=== PATIENT | male | born 1950 | race Caucasian/White ===

== ENCOUNTER → 2017-04-07 | Outpatient (CLI) | payer MEDICARE, MEDICAID ==
[~2017-04-07] MED LIST: METH4TAB PO; MULT1CAP27 PO; NIA500ERT PO; OMEP-10 PO; OMEP20TA2 PO; SULF1TAB38 PO; [UNRECOGNIZED DRUG - CODE] PO; omeprazole; simvastatin
[2017-04-07 08:24] LABS: ALBUMIN 4.3 G/DL (3.2-4.5); BILIRUBIN,DIRECT 0.2 MG/DL (0.0-0.3); BILIRUBIN,INDIRECT 0.2 MG/DL; BILIRUBIN,TOTAL 0.4 MG/DL (0.1-1.0)
--- NOTE | 2017-04-07 13:25 | ECHOCARDIOGRAPHY REPORT ---
DATE OF SERVICE: 04/07/2017 A 2D ECHOCARDIOGRAM REFERRING PHYSICIAN: No local physician. INDICATION: Chest pain. MEASUREMENT: LVID end diastolic 4.0. IVS thickness 1.0. LVPW thickness 0.9 cm. Left atrial diameter 2.4. Ejection fraction 60%. FINDINGS: 1. Technical quality is good. 2. The left ventricle is normal in size with normal contractility, systolic function appeared to be normal, estimated ejection fraction 60%. 3. The left atrium is normal in size. No clot or thrombus were seen within the left atrium. 4. The right atrium and right ventricle are normal in size. No clot or thrombus were seen within the right side. 5. Mitral valve is normal in morphology with mild mitral regurgitation noted by color Doppler flow. No mitral valve prolapse. No mitral valve stenosis. 6. Aortic valve is trileaflet with normal opening and closing pattern. No significant aortic stenosis or regurgitation was seen. 7. Tricuspid valve is normal in morphology with mild tricuspid regurgitation noted by color Doppler flow. Doppler across the tricuspid valve estimated pulmonary artery pressure of 18 plus right atrial pressure. 8. Pulmonic valve is functioning normally. 9. No pericardial effusion. CONCLUSION: 1. Normal left ventricular size and systolic function, estimated ejection fraction 60%. 2. Mild mitral and tricuspid regurgitation. 3. Estimated pulmonary artery pressure of 25 mmHg. Job ID: [id number] DocumentID: [id number] Dictated Date: 04/07/2017 12:00:36 Money Market Clerk Date: 04/07/2017 12:27:40 Dictated By: DINA CHOUDHARY MD
== END ==
LOC: CARD 07:39
PROVIDERS: ATTEND Physician Assistant
DX: E78.2 Mixed hyperlipidemia (principal); I25.10 Atherosclerotic heart disease of native coronary artery without angina pectoris; R07.89 Other chest pain; I50.20 Unspecified systolic (congestive) heart failure
CPT/HCPCS: 36415; 80061; 80076; 93306

== ENCOUNTER → 2017-04-09 | Outpatient (CLI) | payer MEDICARE, MEDICAID ==
[~2017-04-09] MED LIST changes: +CATHETER FLUSH 10 ML SYR IV PRN; +REGADENOSON 0.4 MG/5 ML SYR (LEXISCAN) IV ONE
[2017-04-09 09:28] VITALS: BP 146/74
--- NOTE | 2017-04-11 07:48 | STRESS TEST ---
DATE OF SERVICE: 04/09/2017 LEXISCAN MYOVIEW STRESS TEST REPORT REFERRING PHYSICIAN: There is no local physician. Baseline heart rate is 58. Baseline blood pressure is 146/74. Baseline EKG is sinus rhythm with no ischemic changes. SUMMARY: The patient was injected with 10.55 mCi of technetium-99 Myoview and the resting images were obtained. Then, the patient received 0.4 mg of Lexiscan followed by 30.7 mCi of technetium-99 Myoview. Throughout the test, there were nondiagnostic EKG changes. The resting and stress images were reviewed and compared in the short axis, horizontal long axis, and vertical long axis views. Review of the images showed good radiotracer uptake with no significant ischemia or infarction on SPECT images. SSS is 1, SDS 1, TID value 1.02. On the gated images, the left ventricle appeared to be in normal size with normal contractility, calculated ejection fraction 52%. CONCLUSIONS: 1. The patient tolerated Lexiscan well. 2. No ischemia or infarction on SPECT images. 3. Normal left ventricular size with normal contractility, calculated ejection fraction 52%. Job ID: [id number] DocumentID: [id number] Dictated Date: 04/09/2017 15:27:25 Grades 9 Through 12 Teacher Date: 04/10/2017 05:51:04 Dictated By: DINA CHOUDHARY MD
== END ==
LOC: CARD 07:37
PROVIDERS: ATTEND Physician Assistant
DX: I25.10 Atherosclerotic heart disease of native coronary artery without angina pectoris (principal); R07.89 Other chest pain; E78.2 Mixed hyperlipidemia; I50.20 Unspecified systolic (congestive) heart failure
CPT/HCPCS: 78452; 93017

== ENCOUNTER 2017-07-16 14:54 | Inpatient (IN) | payer MEDICARE, MEDICAID ==
[~2017-07-16] VITALS: Ht 167.6 cm; Wt 62.1 kg
[~2017-07-16 14:54] MED LIST changes: -CATHETER FLUSH 10 ML SYR IV PRN; -REGADENOSON 0.4 MG/5 ML SYR (LEXISCAN) IV ONE
--- OUTSIDE RECORDS SUMMARY | 2017-07-16 15:02 | XMS REPORT | Continuity of Care Document ---
Author Author [facility] Organization [facility] Address Unknown Phone Unavailable Allergies Active Description Code Type Severity Reaction Onset Reported/Identified Relationship to Patient Clinical Status Yes iodine dye iodine dye Mild N/A 03/16/2009 Yes iodine [id number] Drug Allergy Mild FACE SWOLLEN, E 03/18/2011 Medications Problems Date Dx Coded Attending Type Code Diagnosis Diagnosed By 10/23/1099 VILMA POSADAS, CHINO Perry Ot Z48.812 ENCNTR FOR SURGICAL AFTCR FOLLOWING SURG 10/23/1099 VILMA POSADAS, CHINO Perry Ot Z95.5 PRESENCE OF CORONARY ANGIOPLASTY IMPLANT 03/18/2011 Ot 682.3 CELLULITIS OF ARM 06/08/2013 SONA POSADAS, DUONG R Ot 789.07 ABDOMINAL PAIN, GENERALIZED 07/21/2014 STAN SPEARS OSS ARCHITECT Ot 881.00 OPEN WOUND OF FOREARM 07/21/2014 STAN SPEARS OSS ARCHITECT Ot E000.8 OTHER EXTERNAL CAUSE STATUS 07/21/2014 STAN SPEARS OSS ARCHITECT Ot E849.0 ACCIDENT IN HOME 07/21/2014 STAN SPEARS OSS ARCHITECT Ot E917.4 STAT OB W/O SUB FALL NEC 07/21/2014 STAN SPEARS OSS ARCHITECT Ot V06.1 [id number]-[id number], COMBINED [ 07/28/2014 SERA POSADAS, ALEXX Skinner Ot V58.32 ENCOUNTER FOR REMOVAL OF SUTURES 03/15/2016 RODRICK SRIVASTAVA DO Ot E78.5 HYPERLIPIDEMIA, UNSPECIFIED 03/15/2016 RODRICK SRIVASTAVA DO Ot I10 ESSENTIAL (PRIMARY) HYPERTENSION 03/15/2016 RODRICK SRIVASTAVA DO Ot I25.10 ATHSCL HEART DISEASE OF [place] CORONARY 03/15/2016 RODRICK SRIVASTAVA DO Ot I25.5 ISCHEMIC CARDIOMYOPATHY 03/15/2016 RODRICK SRIVASTAVA DO Ot I50.22 CHRONIC SYSTOLIC (CONGESTIVE) HEART FAIL 03/15/2016 RODRICK SRIVASTAVA DO Ot I70.1 ATHEROSCLEROSIS OF RENAL ARTERY 03/15/2016 SRIVASTAVAHIPOLITO VILLANUEVA RODRICK Ot I70.203 UNSP ATHSCL [place] ARTERIES OF [facility] 03/15/2016 SRIVASTAVAHIPOLITO VILLANUEVA RODRICK Ot 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 03/15/2016 SRIVASTAVAHIPOLITO VILLANUEVA RODRICK Ot Z72.0 TOBACCO USE 03/15/2016 SRIVASTAVAHIPOLITO VILLANUEVA RODRICK Ot 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 03/15/2016 CAROLA VILLANUEVA RODRICK Ot Z82.49 FAMILY HX OF ISCHEM HEART DIS AND OTH DI 03/25/2016 CAROLA VILLANUEVA RODRICK Ot E78.5 HYPERLIPIDEMIA, UNSPECIFIED 03/25/2016 SRIVASTAVA DO RODRICK Ot I10 ESSENTIAL (PRIMARY) HYPERTENSION 03/25/2016 CAROLA VILLANUEVA RODRICK Ot I25.10 ATHSCL HEART DISEASE OF [place] CORONARY 03/25/2016 CAROLA VILLANUEVA RODRICK Ot I25.5 ISCHEMIC CARDIOMYOPATHY 03/25/2016 CAROLA VILLANUEVA RODRICK Ot I50.22 CHRONIC SYSTOLIC (CONGESTIVE) HEART FAIL 03/25/2016 CAROLA VILLANUEVA RODRICK Ot I70.1 ATHEROSCLEROSIS OF RENAL ARTERY 03/25/2016 CAROLA VILLANUEVA RODRICK Ot I70.203 UNS ATHSCL [place] ARTERIES OF [facility] 03/25/2016 SRIVASTAVAHIPOLITO VILLANUEVA RODRICK Ot 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 03/25/2016 CAROLA VILLANUEVA RODRICK Ot Z72.0 TOBACCO USE 03/25/2016 CAROLA VILLANUEVA RODRICK Ot Z79.899 OTHER [facility] (CURRENT) DRUG THERAPY 03/25/2016 CAROLA VILLANUEVA RODRICK Ot Z82.49 FAMILY HX OF ISCHEM HEART DIS AND OTH DI 06/24/2016 FIDELINA DOMÍNGUEZ MD Ot R42 DIZZINESS AND GIDDINESS 06/24/2016 FIDELINA DOMÍNGUEZ MD Ot Z53.21 PROC/TRTMT NOT CRD OUT D/T PT LV BEF SEE 06/24/2016 CHINO ESPARZA MD Ot Z48.812 ENCNTR FOR SURGICAL AFTCR FOLLOWING SURG 06/24/2016 CHINO ESPARZA MD Ot Z95.5 PRESENCE OF CORONARY ANGIOPLASTY IMPLANT 06/25/2016 FIDELINA DOMÍNGUEZ MD Ot R42 DIZZINESS AND GIDDINESS 06/25/2016 FIDELINA DOMÍNGUEZ MD Ot Z53.21 PROC/TRTMT NOT CRD OUT D/T PT LV BEF SEE 07/09/2016 CHINO ESPARZA MD, Ot Z48.812 ENCNTR FOR SURGICAL AFTCR FOLLOWING SURG 07/09/2016 CHINO ESPARZA MD, Ot Z95.5 PRESENCE OF CORONARY ANGIOPLASTY IMPLANT 08/11/2016 CHINO ESPARZA MD, Ot Z48.812 ENCNTR FOR SURGICAL AFTCR FOLLOWING SURG 08/11/2016 CHINO ESPARZA MD Ot Z95.5 PRESENCE OF CORONARY ANGIOPLASTY IMPLANT 08/12/2016 CHINO ESPARZA MD, Ot Z48.812 ENCNTR FOR SURGICAL AFTCR FOLLOWING SURG 08/12/2016 CHINO ESPARZA MD, Ot Z95.5 PRESENCE OF CORONARY ANGIOPLASTY IMPLANT 08/13/2016 CHINO ESPARZA MD, Ot Z48.812 ENCNTR FOR SURGICAL AFTCR FOLLOWING SURG 08/13/2016 CHINO ESPARZA MD, Ot Z95.5 PRESENCE OF CORONARY ANGIOPLASTY IMPLANT 08/14/2016 CHINO ESPARZA MD, Ot Z48.812 ENCNTR FOR SURGICAL AFTCR FOLLOWING SURG 08/14/2016 CHINO ESPARZA MD, Ot Z95.5 PRESENCE OF CORONARY ANGIOPLASTY IMPLANT 03/24/2017 BRIAN KAPLAN Ot I25.10 ATHSCL HEART DISEASE OF [place] CORONARY 04/08/2017 BRIAN KAPLAN Ot I25.10 ATHSCL HEART DISEASE OF [place] CORONARY 04/09/2017 BRIAN KAPLAN Ot E78.2 MIXED HYPERLIPIDEMIA 04/09/2017 BRIAN KAPLAN Ot I25.10 ATHSCL HEART DISEASE OF [place] CORONARY 04/09/2017 BRIAN KAPLAN Ot I50.20 UNSPECIFIED SYSTOLIC ( [place]) HEART 04/09/2017 BRIAN KAPLAN Ot R07.89 OTHER CHEST PAIN 05/05/2017 BRIAN KAPLAN Ot E78.2 MIXED HYPERLIPIDEMIA 05/05/2017 BRIAN KAPLAN Ot I25.10 ATHSCL HEART DISEASE OF [place] CORONARY 05/05/2017 KATHIA PA, BRIAN K Ot I50.20 UNSPECIFIED SYSTOLIC ( CONGE[place]IVE) HEART 05/05/2017 KATHIA LEO, BRIAN K Ot R07.89 OTHER CHEST PAIN 05/05/2017 KATHIA PA, BRIAN K Ot E78.2 MIXED HYPERLIPIDEMIA 05/05/2017 KATHIA LEO, BRIAN K Ot I25.10 ATHSCL HEART DISEASE OF [place] CORONARY 05/05/2017 KATHIA PA, BRIAN K Ot I50.20 UNSPECIFIED SYSTOLIC ( CONGESTIVE) HEART 05/05/2017 KATHIA LEO, BRIAN K Ot R07.89 OTHER CHEST PAIN 05/05/2017 KATHIA LEO, BRIAN K Ot E78.2 MIXED HYPERLIPIDEMIA 05/05/2017 KATHIA LEO, BRIAN K Ot I25.10 ATHSCL HEART DISEASE OF [place] CORONARY 05/05/2017 KATHIA LEO, BRIAN K Ot I50.20 UNSPECIFIED SYSTOLIC ( CONGESTIVE) HEART 05/05/2017 KATHIA LEO, BRIAN K Ot R07.89 OTHER CHEST PAIN 05/05/2017 KATHIA LEO, BRIAN K Ot E78.2 MIXED HYPERLIPIDEMIA 05/05/2017 KATHIA LEO, BRIAN K Ot I25.10 ATHSCL HEART DISEASE OF [place] CORONARY 05/05/2017 KATHIA LEO, BRIAN K Ot I50.20 UNSPECIFIED SYSTOLIC ( CONGESTIVE) HEART 05/05/2017 KATHIA LEO, BRIAN K Ot R07.89 OTHER CHEST PAIN 05/05/2017 KATHIA LEO, BRIAN K Ot E78.2 MIXED HYPERLIPIDEMIA 05/05/2017 KATHIA LEO, BRIAN K Ot I25.10 ATHSCL HEART DISEASE OF [place] CORONARY 05/05/2017 KATHIA LEO, BRIAN K Ot I50.20 UNSPECIFIED SYSTOLIC ( CONGESTIVE) HEART 05/05/2017 KATHIA LEO, BRIAN K Ot R07.89 OTHER CHEST PAIN 05/23/2017 KATHIA LEO, BRIAN K Ot E78.2 MIXED HYPERLIPIDEMIA 05/23/2017 KATHIA LEO, BRIAN K Ot I25.10 ATHSCL HEART DISEASE OF [place] CORONARY 05/23/2017 BRIAN KAPLAN Ot I50.20 UNSPECIFIED SYSTOLIC ( CONGESTIVE) HEART 05/23/2017 BRIAN KAPLAN Ot R07.89 OTHER CHEST PAIN Procedures Results Encounters ACCT No. Visit Date/Time Discharge Status Pt. Type Provider Facility Loc./Unit Complaint [id number] 04/09/2017 07:37:00 2016 23:59:59 CLS Outpatient BRIAN KAPLAN [facility] CARD CAD,CHEST PAIN [id number] 04/07/2017 08:00:00 2016 23:59:59 CLS Outpatient BRIAN KAPLAN [facility] CARD CAD, CHEST PAIN [id number] 08/14/2016 10:30:00 2015 11:00:00 DIS Outpatient CHINO ESPARZA MD [facility] CR STENT [id number] 08/09/2016 10:15:00 2015 00:01:00 DIS Outpatient CHINO ESPARZA MD [facility] CR STENT [id number] 06/24/2016 10:16:00 2015 11:16:00 DIS Emergency FIDELINA DOMÍNGUEZ MD [facility] ER DIZZY/STOMACH PAIN [id number] 03/14/2016 12:50:00 2015 15:15:00 DIS Outpatient RODRICK SRIVASTAVA DO [facility] CATH CHEST PAIN [id number] 07/28/2014 12:18:00 2013 12:27:00 DIS Emergency ALEXX ZAMORA MD [facility] ER SUTURE REMOVAL [id number] 07/21/2014 19:42:00 2013 20:38:00 DIS Emergency STAN SPEARS APRN [facility] ER L ARM LAC [id number] 06/08/2013 12:01:00 2012 14:46:00 DIS Emergency SONA POSADAS, DUONG R [facility] ER STOMACH TROUBLE [id number] 03/18/2011 11:50:00 Document Registration
[2017-07-16] MEDS ORDERED: CLOP75TA69 PO (15:42)
[2017-07-16] MEDS ORDERED: cefTRIAXone 1 GM (ROCEPHIN) VIAL IV STA (16:17)
[2017-07-16] MEDS ORDERED: NS IV 1000 ML 1,500 ML IV PRN (16:30)
[2017-07-16] MEDS ORDERED: ACETAMINOPHEN 500 MG TAB (TYLENOL) PO PRN (16:30)
[2017-07-16 16:52] LABS: BASOPHILS % (AUTO) 0 % (0-10); EOSINOPHILS # (AUTO) 0.1 10^3/uL (0.0-0.3); EOSINOPHILS % (AUTO) 3 % (0-10); LYMPHOCYTES # (AUTO) 0.3 X 10^3 (1.0-4.0); LYMPHOCYTES % (AUTO) 6 % (12-44); MEAN CORPUSCULAR HEMOGLOBIN 33 PG (25-34); MEAN CORPUSCULAR HGB CONC 36 G/DL (32-36); MEAN CORPUSCULAR VOLUME 94 FL (80-99); MEAN PLATELET VOLUME 10.7 FL (7.4-10.4); MONOCYTES # (AUTO) 0.4 X 10^3 (0.0-1.0); MONOCYTES % (AUTO) 7 % (0-12); NEUTROPHILS # (AUTO) 4.8 X 10^3 (1.8-7.8); NEUTROPHILS % (AUTO) 84 % (42-75); PLATELET COUNT 115 10^3/uL (130-400); RED BLOOD COUNT 3.26 10^6/uL (4.35-5.85); RED CELL DISTRIBUTION WIDTH 12.3 % (10.0-14.5); WHITE BLOOD COUNT 5.7 10^3/uL (4.3-11.0)
[2017-07-16 17:01] LABS: PROTHROMBIN TIME PATIENT 13.2 SEC (12.2-14.7)
--- NOTE | 2017-07-16 17:01 | Diagnostic Imaging Report ---
INDICATION: Fever and sepsis. TIME OF EXAMINATION: 1652 hours. COMPARISON: 03/14/2016. FINDINGS: There is air trapping bilaterally. Prominent interstitial markings are seen in both lungs. There is no evidence of pneumothorax or consolidation. No significant pleural fluid is identified. IMPRESSION: Findings are consistent with emphysema and possible COPD. Mild superimposed interstitial edema or pneumonitis is not excluded. Dictated by: Dictated on workstation # [id number]
[2017-07-16 17:08] LABS: BAND NEUTROPHILS 19 %; BASOPHILS % (MANUAL) 1 %; EOSINOPHILS % (MANUAL) 1 %; LYMPHOCYTES % (MANUAL) 6 %; NEUTROPHILS % (MANUAL) 67 %
[2017-07-16 17:12] LABS: BILIRUBIN,URINE NEGATIVE (NEGATIVE); KETONES,URINE 1+ (NEGATIVE); LEUKOCYTE ESTERASE ,URINE 1+ (NEGATIVE); NITRITE,URINE NEGATIVE (NEGATIVE); PH,URINE 8 (5-9); PROTEIN,URINE 4+ (NEGATIVE); UROBILINOGEN,URINE NORMAL (NORMAL)
[2017-07-16 17:13] LABS: ALANINE AMINOTRANSFERASE 14 U/L (0-55); ALBUMIN 3.9 GM/DL (3.2-4.5); ANION GAP 7 MMOL/L (5-14); ASPARTATE AMINO TRANSFERASE 26 U/L (5-34); BILIRUBIN,TOTAL 0.3 MG/DL (0.1-1.0); BLOOD UREA NITROGEN 10 MG/DL (7-18); BUN/CREATININE RATIO 12; CALCIUM 8.4 MG/DL (8.5-10.1); CARBON DIOXIDE 23 MMOL/L (21-32); CHLORIDE 87 MMOL/L (98-107); CREATININE SERUM 0.85 MG/DL (0.60-1.30); GFR ESTIMATED > 60; GLUCOSE 84 MG/DL (70-105); POTASSIUM 4.5 MMOL/L (3.6-5.0); TOTAL PROTEIN 6.1 GM/DL (6.4-8.2)
[2017-07-16 17:18] LABS: SODIUM 117 MMOL/L (135-145)
[2017-07-16 18:37] VITALS: BP 104/48
[2017-07-16] MEDS ORDERED: TAMS0.4C2 PO (18:43)
[2017-07-16] MEDS ORDERED: FINA5TAB6 PO (18:44)
[2017-07-16] MEDS ORDERED: SULF1TAB35 PO (18:46)
--- NOTE | 2017-07-16 19:17 | ED GU-Male ---
General Chief Complaint: -Male Stated Complaint: BLOOD IN CATHETER BAG Nursing Triage Note: ADM TO ED WAS AT [facility] ON FRIDAY FOR ROUTINE CHECK HAD DISTENDED ABD PLACED CHAVARRIA ABD BECAME BETTER AT THAT TIME NOTICED BLOOD IN URNE. PATIENT C/O R FLANK PAIN TODAY WITH INCREASE I BLOOD IN URINE. AWAITING [facility] TO GIVE HIM A UROLIGST Source: patient, family Exam Limitations: no limitations History of Present Illness Time seen by provider: 15:15 Initial Comments 66-year-old male patient presents to the emergency department with complaints of gross hematuria. Patient reportedly was seen at [facility] on Friday for routine checkup and was found to have a distended abdomen. Patient denied any abdominal pain or difficulty with urination outside of his usual hesitancy from BPH. Patient states since the Chavarria catheter was placed he has continued to have increasing hematuria. Patient complains of fever 101.6 yesterday evening as well as a fever throughout the day intermittently today. Patient states he has been waiting for an appointment to be scheduled with a urologist. Reports generalized malaise today. Patient is on Plavix and aspirin. Timing/Duration: getting worse, other (3 days) Severity/Quality: moderate Activities at Onset: none Prior Genitourinary Problems: none Allergies and Home Medications Allergies Coded Allergies: Iodinated Contrast- Oral and IV Dye (Unverified Allergy, Severe, FACE SWOLLEN, EYES RED, 07/16/17) iodine (Unverified Allergy, Severe, FACE SWOLLEN, EYES RED, 07/16/17) Home Medications Ciprofloxacin HCl 500 Mg Tablet, 500 MG PO BID, #14 Prescribed by: RODRICK SRIVASTAVA on 07/21/17 0914 Famotidine 20 Mg Tablet, 20 MG PO HS, (Reported) Finasteride 5 Mg Tablet, 5 MG PO DAILY, (Reported) Lisinopril 10 Mg Tablet, 10 MG PO DAILY, (Reported) Metoprolol Tartrate 25 Mg Tablet, 12.5 MG PO BID, (Reported) TAKES 1/2 (25MG) TABLET Tamsulosin HCl 0.4 Mg Cap.er.24h, 0.4 MG PO 1730, (Reported) Constitutional: chills, fever, malaise, other (fatigue) EENTM: no symptoms reported Respiratory: No cough, No phlegm, No short of breath Cardiovascular: No chest pain, No edema, No palpitations Gastrointestinal: No abdominal pain, No constipation, No diarrhea, No hematemesis, loss of appetite, No melena, nausea, No vomiting Genitourinary: see HPI, hematuria, denies pain Musculoskeletal: back pain, No neck pain Skin: no symptoms reported Psychiatric/Neurological: No Symptoms Reported All Other Systemes Reviewed Negative Unless Noted: Yes (Negative excepted noted.) Past Fuvlfzh-Cyagio-Usjphr Hx Patient Social History Alcohol Use: Denies Use Recreational Drug Use: No Smoking Status: Current Everyday Smoker Recent Foreign Travel: No Contact w/Someone Who Travel: No Recent Infectious Disease Expo: No Immunizations Up To Date Tetanus Booster (TDap): Less than 5yrs Date of Pneumonia Vaccine: Mar 14, 2013 Seasonal Allergies Seasonal Allergies: Yes Surgeries History of Surgeries: Yes (UMBILICAL HERNIA) Respiratory History of Respiratory Disorde: Yes Respiratory Disorders: COPD Currently Using CPAP: No Currently Using BIPAP: No Cardiovascular History of Cardiac Disorders: Yes (STENT ) Cardiac Disorders: Hypertension Neurological History of Neurological Disord: No Reproductive System Hx Reproductive Disorders: No Gastrointestinal History of Gastrointestinal Di: Yes Gastrointestinal Disorders: Fuentes's Esophagus Musculoskeletal History of Musculoskeletal Dis: No Endocrine History of Endocrine Disorders: No Cancer History of Cancer: No Psychosocial History of Psychiatric Problem: No Integumentary History of Skin or Integumenta: No Blood Transfusions History of Blood Disorders: No Reviewed Nursing Assessment Reviewed/Agree w Nursing PMH: Yes Family Medical History Significant Family History: No Pertinent Family Hx Family Medial History: Alzheimer's disease 19 MOTHER Cardiovascular disease 19 FATHER (BYPASS) PVD 19 MOTHER Respiratory disorder 19 FATHER (COPD) Physical Exam Vital Signs Vital Sign - Last 12Hours 07/16/17 07/16/17 15:09 18:37 Temp 100.0 Pulse 95 Resp 18 B/P (MAP) 144/77 Pulse Ox 98 O2 Delivery Room Air Capillary Refill : Less Than 3 Seconds General Appearance: WD/WN, no apparent distress, other (temp at the time of exam is 101.6) HEENT: PERRL/EOMI, normal ENT inspection, TMs normal, pharynx normal, other ( oral mucosa dry) Neck: non-tender, full range of motion, supple, normal inspection Cardiovascular: normal peripheral pulses, regular rate, rhythm, no edema, no murmur Respiratory: lungs clear, normal breath sounds, no respiratory distress, no accessory muscle use Gastrointestinal: normal bowel sounds, non tender, soft, no organomegaly, No distended, other (gross hematuria noted in the chavarria bag.) Back: normal inspection, no CVA tenderness Extremities: no pedal edema, no calf tenderness, normal capillary refill Neurologic/Psychiatric: alert, normal mood/affect, oriented x 3 Skin: normal color, warm/dry Focused Exam Evaluation Lactate Level Laboratory Tests 07/16/17 16:29: Lactic Acid Level 0.88 Lactic Acid Level Laboratory Tests Test 07/16/17 16:29 Lactic Acid Level 0.88 MMOL/L (0.50-2.00) Progress/Results/Core Measures Results/Orders Lab Results Laboratory Tests Test 07/16/17 16:29 07/16/17 17:07 Range/Units White Blood Count 5.7 4.3-11.0 10^3/uL Red Blood Count 3.26 L 4.35-5.85 10^6/uL Hemoglobin 10.9 L 13.3-17.7 G/DL Hematocrit 31 L 40-54 % Mean Corpuscular Volume 94 80-99 FL Mean Corpuscular Hemoglobin 33 25-34 PG Mean Corpuscular Hemoglobin Concent 36 32-36 G/DL Red Cell Distribution Width 12.3 10.0-14.5 % Platelet Count 115 L 130-400 10^3/uL Mean Platelet Volume 10.7 H 7.4-10.4 FL Neutrophils (%) (Auto) 84 H 42-75 % Lymphocytes (%) (Auto) 6 L 12-44 % Monocytes (%) (Auto) 7 0-12 % Eosinophils (%) (Auto) 3 0-10 % Basophils (%) (Auto) 0 0-10 % Neutrophils # (Auto) 4.8 1.8-7.8 X 10^3 Lymphocytes # (Auto) 0.3 L 1.0-4.0 X 10^3 Monocytes # (Auto) 0.4 0.0-1.0 X 10^3 Eosinophils # (Auto) 0.1 0.0-0.3 10^3/uL Basophils # (Auto) 0.0 0.0-0.1 10^3/uL Neutrophils % (Manual) 67 % Lymphocytes % (Manual) 6 % Monocytes % (Manual) 6 % Eosinophils % (Manual) 1 % Basophils % (Manual) 1 % Band Neutrophils 19 % Blood Morphology Comment NORMAL Prothrombin Time 13.2 12.2-14.7 SEC INR Comment 1.0 0.8-1.4 Activated Partial Thromboplast Time 32 24-35 SEC Sodium Level 117 *L 135-145 MMOL/L Potassium Level 4.5 3.6-5.0 MMOL/L Chloride Level 87 L 98-107 MMOL/L Carbon Dioxide Level 23 21-32 MMOL/L Anion Gap 7 5-14 MMOL/L Blood Urea Nitrogen 10 7-18 MG/DL Creatinine 0.85 0.60-1.30 MG/DL Estimat Glomerular Filtration Rate > 60 BUN/Creatinine Ratio 12 Glucose Level 84 70-105 MG/DL Lactic Acid Level 0.88 0.50-2.00 MMOL/L Calcium Level 8.4 L 8.5-10.1 MG/DL Total Bilirubin 0.3 0.1-1.0 MG/DL Aspartate Amino Transf (AST/SGOT) 26 5-34 U/L Alanine Aminotransferase (ALT/SGPT) 14 0-55 U/L Alkaline Phosphatase 81 40-136 U/L Total Protein 6.1 L 6.4-8.2 GM/DL Albumin 3.9 3.2-4.5 GM/DL Urine Color RED H Urine Clarity BLOODY H Urine pH 8 5-9 Urine Specific [place] 1.015 L 1.016-1.022 Urine Protein 4+ NEGATIVE Urine Glucose (UA) NEGATIVE NEGATIVE Urine Ketones 1+ H NEGATIVE Urine Nitrite NEGATIVE NEGATIVE Urine Bilirubin NEGATIVE NEGATIVE Urine Urobilinogen NORMAL NORMAL MG/DL Urine Leukocyte Esterase 1+ H NEGATIVE Urine RBC (Auto) 5+ H NEGATIVE Urine RBC TNTC H /HPF Urine WBC NONE /HPF Urine Crystals NONE /LPF Urine Bacteria NEGATIVE /HPF Urine Casts NONE /LPF Urine Mucus NEGATIVE /LPF Urine Culture Indicated NO Micro Results Microbiology 07/16/17 Blood Culture - Final, Complete No growth 07/16/17 Blood Culture - Final, Complete No growth My Orders Orders - PONCHO PORTILLO PA Ua Culture If Indicated (07/16/17 15:18) Cbc With Automated Diff (07/16/17 16:17) Comprehensive Metabolic Panel (07/16/17 16:17) Lactic Acid Analyzer (07/16/17 16:17) Blood Culture (07/16/17 16:17) Protime With Inr (07/16/17 16:17) Partial Thromboplastin Time (07/16/17 16:17) Chest 1 View, Ap/Pa Only (07/16/17 16:17) Acetaminophen Tablet (Tylenol Tablet) (07/16/17 16:30) Saline Lock/Iv-Start (07/16/17 16:17) Ns Iv 1000 Ml (Sodium Chloride 0.9%) (07/16/17 16:30) Ceftriaxone Injection (Rocephin Injectio (07/16/17 16:17) Remove Rings In Anticipation O (07/16/17 16:17) Manual Differential (07/16/17 16:29) Ekg Tracing (07/16/17 17:19) Monitor-Rhythm Ecg Trace Only (07/16/17 17:19) Medications Given in ED Vital Signs/I&O Vital Sign - Last 12Hours 07/16/17 07/16/17 15:09 18:37 Temp 100.0 99.9 Pulse 95 89 Resp 18 18 B/P (MAP) 144/77 104/48 Pulse Ox 98 O2 Delivery Room Air Blood Pressure Mean: 66 Diagnostic Imaging Diagonstic Imaging: Xray Plain Films/CT/US/NM/MRI: chest Comments FINDINGS: There is air trapping bilaterally. Prominent interstitial markings are seen in both lungs. There is no evidence of pneumothorax or consolidation. No significant pleural fluid is identified. IMPRESSION: Findings are consistent with emphysema and possible COPD. Mild superimposed interstitial edema or pneumonitis is not excluded. Dictated on workstation # [id number] Reviewed: Reviewed by Me (radiology report reviewed by me) Departure Communication Time/Spoke to Admitting Phy: 18:[address] srivastava graciously accepts patient to her internal medicine service for IV antibiotics, IV fluids, and urology consult. Time/Spoke to Consulting Physi: 18:40 Communication/Consulting dr huber notified of consult for hematuria. Progress Notes Due to patient's severe hyponatremia and fluid restrictions, he was not given normal saline at 30 mg/kg or a rate of 250/hr Impression Impression: Primary Impression: Sepsis Qualified Codes: A41.9 - Sepsis, unspecified organism Additional Impressions: severe hyponatremia Gross hematuria Anemia Qualified Codes: D64.9 - Anemia, unspecified COPD (chronic obstructive pulmonary disease) with emphysema Qualified Codes: J43.9 - Emphysema, unspecified Disposition: 09 ADMITTED INPATIENT Condition: Stable Admissions Decision to Admit Reason: Admit from ER (General) Decision to Admit/Date: Jul 16, 2017 Time/Decision to Admit Time: 18:35 Departure-Patient Inst. Referrals: NO,LOCAL PHYSICIAN (PCP/Family) Primary Care Physician Scripts Ciprofloxacin HCl (Cipro) 500 Mg Tablet 500 MG PO BID, #14 TAB Prov: RODRICK SRIVASTAVA DO 07/21/17 PONCHO PORTILLO Jul 16, 2017 19:17
--- OUTSIDE RECORDS SUMMARY | 2017-07-16 19:27 | XMS REPORT | Continuity of Care Document ---
Author Author [facility] Organization [facility] Address Unknown Phone Unavailable Allergies Active Description Code Type Severity Reaction Onset Reported/Identified Relationship to Patient Clinical Status Yes iodine dye iodine dye Mild N/A 03/16/2009 Yes iodine [id number] Drug Allergy Mild FACE SWOLLEN, E 03/18/2011 Medications Problems Date Dx Coded Attending Type Code Diagnosis Diagnosed By 10/23/1099 VILMA POSADAS, CHINO Perry Ot Z48.812 ENCNTR FOR SURGICAL AFTCR FOLLOWING SURG 10/23/1099 VILMA POSADAS, CHINO Perry Ot Z95.5 PRESENCE OF CORONARY ANGIOPLASTY IMPLANT 03/18/2011 Ot 682.3 CELLULITIS OF ARM 06/08/2013 SONA POSADAS, DUONG R Ot 789.07 ABDOMINAL PAIN, GENERALIZED 07/21/2014 STAN SPEARS METAL SASH SETTER Ot 881.00 OPEN WOUND OF FOREARM 07/21/2014 STAN SPEARS METAL SASH SETTER Ot E000.8 OTHER EXTERNAL CAUSE STATUS 07/21/2014 STAN SPEARS METAL SASH SETTER Ot E849.0 ACCIDENT IN HOME 07/21/2014 STAN SPEARS METAL SASH SETTER Ot E917.4 STAT OB W/O SUB FALL NEC 07/21/2014 STAN SPEARS METAL SASH SETTER Ot V06.1 [id number], COMBINED [ 07/28/2014 SERA POSADAS, ALEXX Skinner Ot V58.32 ENCOUNTER FOR REMOVAL OF SUTURES 03/15/2016 RODRICK SRIVASTAVA DO Ot E78.5 HYPERLIPIDEMIA, UNSPECIFIED 03/15/2016 RODRICK SRIVASTAVA DO Ot I10 ESSENTIAL (PRIMARY) HYPERTENSION 03/15/2016 RODRICK SRIVASTAVA DO Ot I25.10 ATHSCL HEART DISEASE OF [place] CORONARY 03/15/2016 RODRICK SRIVASTAVA DO Ot I25.5 ISCHEMIC CARDIOMYOPATHY 03/15/2016 RODRICK SRIVASTAVA DO Ot I50.22 CHRONIC SYSTOLIC (CONGESTIVE) HEART FAIL 03/15/2016 RODRICK SRIVASTAVA DO Ot I70.1 ATHEROSCLEROSIS OF RENAL ARTERY 03/15/2016 SRIVASTAVAHIPOLITO VILLANUEVA RODRICK Ot I70.203 UNSP ATHSCL [place] ARTERIES OF [facility] 03/15/2016 SRIVASTAVAHIPOLITO VILLANUEVA RODRICK Ot 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 03/15/2016 SRIVASTAVAHIPOLITO VILLANUEVA RODRICK Ot Z72.0 TOBACCO USE 03/15/2016 SRIVASTAVAHIPOLITO VILLANUEVA RODRICK Ot Z79.899 OTHER STUDENT UNION CONSULTANT (CURRENT) DRUG THERAPY 03/15/2016 CAROLA VILLANUEVA RODRICK Ot Z82.49 FAMILY HX OF ISCHEM HEART DIS AND OTH DI 03/25/2016 CAROLA VILLANUEVA RODRICK Ot E78.5 HYPERLIPIDEMIA, UNSPECIFIED 03/25/2016 SRIVASTAVA DO RODRICK Ot I10 ESSENTIAL (PRIMARY) HYPERTENSION 03/25/2016 CAROLA VILLANUEVA RODRICK Ot I25.10 ATHSCL HEART DISEASE OF [place] CORONARY 03/25/2016 CAROLA VILLANUEVA RODRICK Ot I25.5 ISCHEMIC CARDIOMYOPATHY 03/25/2016 CAROLA VILLANUEVA RODRICK Ot I50.22 CHRONIC SYSTOLIC (CONGESTIVE) HEART FAIL 03/25/2016 CAROLA VILLANUEVA RODRICK Ot I70.1 ATHEROSCLEROSIS OF RENAL ARTERY 03/25/2016 CAROLA VILLANUEVA RODRICK Ot I70.203 UNS ATHSCL [place] ARTERIES OF [facility] 03/25/2016 SRIVASTAVAHIPOLITO VILLANUEVA RODRICK Ot 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 03/25/2016 CAROLA VILLANUEVA RODRICK Ot Z72.0 TOBACCO USE 03/25/2016 CAROLA VILLANUEVA RODRICK Ot Z79.899 OTHER INTERMEDIATE (CURRENT) DRUG THERAPY 03/25/2016 CAROLA VILLANUEVA RODRICK [...] KAPLAN Ot I25.10 ATHSCL HEART DISEASE OF [place] CORONARY 04/08/2017 BRIAN KAPLAN Ot I25.10 ATHSCL HEART DISEASE OF [place] CORONARY 04/09/2017 BRIAN KAPLAN Ot E78.2 MIXED HYPERLIPIDEMIA 04/09/2017 BRIAN KAPLAN Ot I25.10 ATHSCL HEART DISEASE OF [place] CORONARY 04/09/2017 BRIAN KAPLAN Ot I50.20 UNSPECIFIED SYSTOLIC ( CONGESTIVE) HEART 04/09/2017 BRIAN KAPLAN Ot R07.89 OTHER CHEST PAIN 05/05/2017 BRIAN KAPLAN Ot E78.2 MIXED HYPERLIPIDEMIA 05/05/2017 BRIAN KAPLAN Ot I25.10 ATHSCL HEART DISEASE OF [place] CORONARY 05/05/2017 KATHIA PA, BRIAN K Ot I50.20 UNSPECIFIED SYSTOLIC ( CONGESTIVE) HEART 05/05/2017 KATHIA LEO, BRIAN K Ot R07.89 OTHER CHEST PAIN 05/05/2017 KATHIA PA, BRIAN K Ot E78.2 MIXED HYPERLIPIDEMIA 05/05/2017 KATHIA LEO, BRIAN K Ot I25.10 ATHSCL HEART DISEASE OF [place] CORONARY 05/05/2017 KATHIA PA, BRIAN K Ot I50.20 UNSPECIFIED SYSTOLIC ( CONGESTIVE) HEART 05/05/2017 KATHIA LEO, BRIAN K Ot R07.89 OTHER CHEST PAIN 05/05/2017 KATHIA LEO, BRIAN K Ot E78.2 MIXED HYPERLIPIDEMIA 05/05/2017 KATHIA LEO, BRIAN K Ot I25.10 ATHSCL HEART DISEASE OF [place] CORONARY 05/05/2017 KATHIA LEO, BRIAN K Ot I50.20 UNSPECIFIED SYSTOLIC ( CONGESTIVE) HEART 05/05/2017 KATHIA LEO, BRIAN K Ot R07.89 OTHER CHEST PAIN 05/05/2017 KATHIA LEO, BRIAN K Ot E78.2 MIXED HYPERLIPIDEMIA 05/05/2017 KATHIA LEO, BRIAN K Ot I25.10 ATHSCL HEART DISEASE OF [place] CORONARY 05/05/2017 KATHIA LEO, BRIAN K Ot I50.20 UNSPECIFIED SYSTOLIC ( CONGESTIVE) HEART 05/05/2017 KATHIA LEO, BRIAN K Ot R07.89 OTHER CHEST PAIN 05/05/2017 KATHIA LEO, BRIAN K Ot E78.2 MIXED HYPERLIPIDEMIA 05/05/2017 KATHIA LEO, BRIAN K Ot I25.10 ATHSCL HEART DISEASE OF [place] CORONARY 05/05/2017 KATHIA LEO, BRIAN K Ot I50.20 UNSPECIFIED SYSTOLIC ( CONGESTIVE) HEART 05/05/2017 KATHIA LEO, BRIAN K Ot R07.89 OTHER CHEST PAIN 05/23/2017 KATHIA LEO, RBIAN K Ot E78.2 MIXED HYPERLIPIDEMIA 05/23/2017 KATHIA LEO, BRIAN K Ot I25.10 ATHSCL HEART DISEASE OF [place] CORONARY 05/23/2017 BRIAN KAPLAN Ot I50.20 UNSPECIFIED SYSTOLIC ( CONGESTIVE) HEART 05/23/2017 BRIAN KAPLAN Ot R07.89 OTHER CHEST PAIN Procedures Results Encounters ACCT No. Visit Date/Time Discharge Status Pt. Type Provider Facility Loc./Unit Complaint [id number] 04/09/2017 07:37:00 2016 23:59:59 CLS Outpatient BRIAN KAPLAN [facility] CARD CAD,CHEST PAIN [id number] 04/07/2017 08:00:00 2016 23:59:59 CLS Outpatient BRIAN KAPLAN [facility] CARD CAD, CHEST PAIN [id number] 08/14/2016 10:30:00 2015 11:00:00 DIS Outpatient CHINO ESPARZA MD [facility] CR STENT [id number] 08/09/2016 10:15:00 2015 00:01:00 DIS Outpatient CHINO ESPARZA MD [facility] CR STENT [id number] 06/24/2016 10:16:00 2015 11:16:00 DIS Emergency FIDELINA DOMÍNGUEZ MD [facility] ER DIZZY/STOMACH PAIN [id number] 03/14/2016 12:50:00 2015 15:15:00 DIS Outpatient RODRICK SRIVASTAVA DO [facility] CATH CHEST PAIN [id number] 07/28/2014 12:18:00 2013 12:27:00 DIS Emergency ALEXX ZAMORA MD [facility] ER SUTURE REMOVAL [id number] 07/21/2014 19:42:00 2013 20:38:00 DIS Emergency STAN SPEARS APRN [facility] ER L ARM LAC [id number] 06/08/2013 12:01:00 2012 14:46:00 DIS Emergency SONA POSADAS, DUONG R [facility] ER STOMACH TROUBLE [id number] 03/18/2011 11:50:00 Document Registration
[2017-07-16 20:00] VITALS: BP 138/66
[2017-07-16] MEDS: LEVOFLOXACIN 750 MG/D5W 150 ML PRE-MIX IV SCH (20:11)
[2017-07-16] MEDS ORDERED: fentaNYL INJECTION 100 MCG/2 ML AMP IV PRN (20:15)
[2017-07-16] MEDS ORDERED: NS IV 1000 ML 1,000 ML IV SCH (20:15)
[2017-07-16] MEDS ORDERED: ONDANSETRON 4 MG/2 ML (SDV) Z0FRAN IV PRN (20:15)
[2017-07-16] MEDS ORDERED: CATHETER FLUSH 10 ML SYR IV PRN (20:15)
[2017-07-16] MEDS ORDERED: RT-ALBUTEROL SULF 2.5 MG/3 ML PRE-MIX VIAL IH PRN (20:15)
[2017-07-16] MEDS: NS IV 1000 ML 1,000 ML IV SCH (21:05)
[2017-07-16] MEDS: RT-ALBUTEROL SULF 2.5 MG/3 ML PRE-MIX VIAL IH SCH (21:46)
[2017-07-16 23:42] VITALS: BP 104/58
[2017-07-17] MEDS: RT-ALBUTEROL SULF 2.5 MG/3 ML PRE-MIX VIAL IH SCH ×6 (02:22→22:47)
[2017-07-17] MEDS: ACETAMINOPHEN 500 MG TAB (TYLENOL) PO PRN (03:52)
[2017-07-17 04:00] VITALS: BP 103/55
[2017-07-17 05:36] LABS: BASOPHILS % (AUTO) 0 % (0-10); EOSINOPHILS # (AUTO) 0.1 10^3/uL (0.0-0.3); EOSINOPHILS % (AUTO) 4 % (0-10); LYMPHOCYTES # (AUTO) 0.4 X 10^3 (1.0-4.0); LYMPHOCYTES % (AUTO) 11 % (12-44); MEAN CORPUSCULAR HEMOGLOBIN 34 PG (25-34); MEAN CORPUSCULAR HGB CONC 36 G/DL (32-36); MEAN CORPUSCULAR VOLUME 94 FL (80-99); MEAN PLATELET VOLUME 10.4 FL (7.4-10.4); MONOCYTES # (AUTO) 0.4 X 10^3 (0.0-1.0); MONOCYTES % (AUTO) 11 % (0-12); NEUTROPHILS # (AUTO) 2.5 X 10^3 (1.8-7.8); NEUTROPHILS % (AUTO) 74 % (42-75); PLATELET COUNT 103 10^3/uL (130-400); RED BLOOD COUNT 2.79 10^6/uL (4.35-5.85); WHITE BLOOD COUNT 3.4 10^3/uL (4.3-11.0)
[2017-07-17 05:54] LABS: ALANINE AMINOTRANSFERASE 17 U/L (0-55); ALBUMIN 3.2 GM/DL (3.2-4.5); ANION GAP 8 MMOL/L (5-14); ASPARTATE AMINO TRANSFERASE 31 U/L (5-34); BILIRUBIN,TOTAL 0.2 MG/DL (0.1-1.0); BLOOD UREA NITROGEN 14 MG/DL (7-18); BUN/CREATININE RATIO 17; CARBON DIOXIDE 19 MMOL/L (21-32); CHLORIDE 97 MMOL/L (98-107); CREATININE SERUM 0.81 MG/DL (0.60-1.30); GFR ESTIMATED > 60; GLUCOSE 97 MG/DL (70-105); POTASSIUM 4.8 MMOL/L (3.6-5.0); TOTAL PROTEIN 5.2 GM/DL (6.4-8.2)
[2017-07-17 05:56] LABS: SODIUM 124 MMOL/L (135-145)
[2017-07-17] MEDS: cefTRIAXone 1 GM/NS 50 ML IVPB IV SCH ×2 (08:24)
[2017-07-17 08:45] VITALS: BP 100/58
--- NOTE | 2017-07-17 10:33 | Diagnostic Imaging Report ---
EXAM: PA and lateral chest at 7:50 a.m. INDICATION: COPD FINDINGS: The heart size is within normal limits and stable when compared to 07/16/17. The central pulmonary vascularity and the interstitial densities in both lungs are not quite as prominent as on the prior exam. The lateral view does show slight blunting of the costophrenic angles and there may be a small amount of fluid or pleural thickening involving the lung bases. The lungs themselves are mildly hyperexpanded and this appearance does suggest COPD. There is no sign of pneumonia. The mediastinum is not widened. The osseous structures are intact. IMPRESSION: The appearance of the chest has improved since the prior exam as the central pulmonary vascularity and interstitial densities are less prominent. There is no acute cardiopulmonary abnormality identified. Dictated by: Dictated on workstation # [id number]
[2017-07-17] MEDS: NS IV 1000 ML 1,000 ML IV SCH (10:49)
--- NOTE | 2017-07-17 10:55 | History & Physical-Hospitalist ---
HPI History of Present Illness: HPI/Chief Complaint CC: Hyponatremia of 117 with gross hematuria HPI: This is a 66[facility] pt of [place] [facility] recently seen and Lamas cath was placed by [place] due to chronic urinary retention then began having large output of blood. Pt had Na+ level of 117 and a fever so Dr. Downey recommended admission to be placed on gentle fluid restriction of 750 cc. Na+ now 124. Patient Interview: Pt states that he does not feel too bad Pt states cath was placed on Friday. Pt states his urine was pink then, but became dark when he returned home Pt confirms being on a "heart diet" for a year and has lost 30 lbs. It includes no meat, dairy, or oil and salt is limited Pt denies being on a diuretic. Pt takes only a few home meds like BP meds, but was told only to take them if BP over 140/90 Pt confirms smoking pack a day Physical exam stable Abx discussed and Na+ improved Pt denies needing pain meds Pt states he was drinking a lot of water to flush the blood out of his urine Scribed by Tamara Li under the direct supervision of Dr. Srivastava. Source: patient Exam Limitations: no limitations Date Seen 07/17/17 Time Seen by Provider: 10:00 Attending Physician Margarette Srivastava DO PCP No,Local Physician Referring Physician Date of Admission Jul 16, 2017 at 18:53 Home Medications & Allergies Home Medications Reviewed patient Home Medication Reconciliation Form Allergies Allergies Coded Allergies Iodinated Contrast- Oral and IV Dye (Unverified Allergy, Severe, FACE SWOLLEN , EYES RED, 07/16/17) iodine (Unverified Allergy, Severe, FACE SWOLLEN, EYES RED, 07/16/17) Past Lynvbfn-Kjdmfh-Nypric Hx Patient Social History Marrital Status: single Employed/Student: retired Alcohol Use: Denies Use Recreational Drug Use: No Smoking Status: Current Everyday Smoker Type Used: Cigarettes Physical Abuse Screen: No Sexual Abuse: No Recent Foreign Travel: No Contact w/other who traveled: No Recent Hopitalizations: No Recent Infectious Disease Expo: No Immunizations Up To Date Tetanus Booster (TDap): Less than 5yrs Date of Pneumonia Vaccine: Mar 14, 2013 Seasonal Allergies Seasonal Allergies: Yes Surgeries Yes (UMBILICAL HERNIA) Respiratory Yes COPD Currently Using CPAP: No Currently Using BIPAP: No Cardiovascular Yes (STENT ) Hypertension Neurological No Reproductive System Hx Reproductive Disorders: No Genitourinary Yes (GROSS HEMATURIA- 07/16/17) Gastrointestinal Yes Fuentes's Esophagus Musculoskeletal No Endocrine History of Endocrine Disorders: No HEENT History of HEENT Disorders: No Cancer No Psychosocial History of Psychiatric Problem: No Integumentary History of Skin or Integumenta: No Blood Transfusions History of Blood Disorders: No Reviewed Nursing Assessment Reviewed/Agree w Nursing PMH: Yes Family Medical History Significant Family History: No Pertinent Family Hx Family Hx: Alzheimer's disease 19 MOTHER Cardiovascular disease 19 FATHER (BYPASS) PVD 19 MOTHER Respiratory disorder 19 FATHER (COPD) Review of Systems Constitutional: see HPI, weakness EENTM: no symptoms reported Respiratory: no symptoms reported Cardiovascular: no symptoms reported Gastrointestinal: no symptoms reported Genitourinary: hematuria Musculoskeletal: no symptoms reported Skin: no symptoms reported Psychiatric/Neurological: No Symptoms Reported All Other Systems Reviewed Negative Unless Noted: Yes Physical Exam Physical Exam Vital Signs Vital Sign - Last 12Hours 07/16/17 07/16/17 15:09 18:37 Temp 100.0 Pulse 95 Resp 18 B/P (MAP) 144/77 Pulse Ox 98 O2 Delivery Room Air Capillary Refill : Less Than 3 Seconds General Appearance: No Apparent Distress, WD/WN, Chronically ill, Thin Eyes: Bilateral Eye Normal Inspection, Bilateral Eye PERRL HEENT: PERRL/EOMI, Normal ENT Inspection, Pharynx Normal Neck: Full Range of Motion, Normal Inspection, Non Tender, Supple, Carotid Bruit Respiratory: Chest Non Tender, Lungs Clear, No Accessory Muscle Use, No Respiratory Distress, Decreased Breath Sounds Cardiovascular: Regular Rate, Rhythm, No Edema, No Gallop, No JVD, No Murmur, Normal Peripheral Pulses Gastrointestinal: Normal Bowel Sounds, No Organomegaly, No Pulsatile Mass, Non Tender, Soft Genital/Rectal: Other (gross blood in Lamas catheter bag) Back: Normal Inspection, No CVA Tenderness, No Vertebral Tenderness Extremity: Normal Capillary Refill, Normal Inspection, Normal Range of Motion, Non Tender, No Calf Tenderness, No Pedal Edema Neurologic/Psychiatric: Alert, Oriented x3, No Motor/Sensory Deficits, Normal Mood/Affect Skin: Normal Color, Warm/Dry Lymphatic: No Adenopathy Results Results/Procedures Lab Laboratory Tests 07/16/17 16:29 07/17/17 05:30 Assessment/Plan Admission Diagnosis Assessment: Severe hyponatremia with gross hematuria after Lamas placement at the [facility] Friday History of hypertension no longer on meds Recent weight loss purposeful of 30 pounds since going on cardiac diet with low sodium Recent polydipsia with water due to redness in his urine to try to flush out BPH Smoker but chest x-ray negative for mass such as small cell causing hyponatremia Empiric antibiotic in case urine culture final report reveals infection Assessment and Plan Plan: Check labs in am Continue fluid restriction Reconcile home meds when confirmed Appreciate Dr Downey's assistance Hold Plavix Clinical Quality Measures DVT/VTE Risk/Contraindication: Risk Factor Score Per Nursin RFS Level Per Nursing on Admit: 4+=Very High MARGARETTE SRIVASTAVA DO Jul 17, 2017 10:55
[2017-07-17 12:00] VITALS: BP 104/68
[2017-07-17] MEDS ORDERED: ASPI-983 PO (14:06)
[2017-07-17] MEDS ORDERED: LISI10TA2 PO (14:06)
[2017-07-17] MEDS ORDERED: FAMO20TA3 PO (14:10)
[2017-07-17] MEDS ORDERED: METO-333 PO (14:15)
--- NOTE | 2017-07-17 15:29 | Diagnostic Imaging Report ---
PROCEDURE: CT abdomen and pelvis without contrast. TECHNIQUE: Multiple contiguous axial images were obtained through the abdomen and pelvis without the use of intravenous contrast. INDICATION: Gross hematuria. FINDINGS: The previous CT chest, abdomen, and pelvis exam of 06/08/2013 did note marked dilatation of the urinary bladder. In the interval since the prior study, a Lamas catheter has been inserted into the bladder. The bladder is now greatly decompressed. There are a few droplets of gas within the bladder. These are most likely related to the insertion of the Lamas catheter. Furthermore, there does appear to be a poorly defined area of increased density within the dependent portion of the bladder. This measures 3.7 x 6.0 cm. I suspect that this is secondary to the presence of hemorrhage. The bladder wall also seems thickened, but this may be related to the incomplete distention of the bladder. The possibility that there is an element of cystitis should also be considered, however. The previous study did note that the prostate gland was prominent measuring 4.9 cm in maximum transverse diameter (normal 5 cm or less). On this study, the prostate gland seems similar to the prior exam. There is no pelvic mass or free fluid collection noted. The appendix was not particularly well visualized, but there are no indirect signs of acute appendicitis. There is diverticulosis of the sigmoid colon, but there is no sign of acute diverticulitis. The liver, spleen, pancreas, adrenals, kidneys, aorta and inferior vena cava, and gallbladder show no sign of an acute abnormality. There is no evidence for a nonobstructive calculus involving either kidney. The stomach is filled with particulate matter and consequently difficult to assess. The lung bases are generally clear. There is mild scar formation in each lower lobe. The bone windows show no sign of a fracture or of a destructive lesion. IMPRESSION: 1. In the interval since the prior exam, a Lamas catheter has been inserted into the bladder and the bladder is now greatly decompressed when compared to the prior study. The gas within the bladder is most likely due to the insertion of the Lamas catheter. The area of increased density in the dependent portion of the bladder does suggest the presence of hemorrhage. The thickened appearance of the bladder wall could be related to incomplete distention, but there could also be an element of cystitis present. Clinical followup is recommended. 2. There is no acute abnormality of the abdomen or pelvis noted otherwise. 3. These results were discussed with Dr. Downey. Dictated by: Dictated on workstation # [id number]
[2017-07-17 15:39] VITALS: BP 100/56
[2017-07-17 19:39] VITALS: BP 100/61
[2017-07-17] MEDS: LEVOFLOXACIN 750 MG/D5W 150 ML PRE-MIX IV SCH (20:23)
[2017-07-18] VITALS: BP 93/51
[2017-07-18] MEDS: RT-ALBUTEROL SULF 2.5 MG/3 ML PRE-MIX VIAL IH SCH ×6 (02:24→21:18)
[2017-07-18] MEDS: NS IV 1000 ML 1,000 ML IV SCH ×3 (03:09→19:38)
[2017-07-18 04:00] VITALS: BP 91/55
[2017-07-18] MEDS: ACETAMINOPHEN 500 MG TAB (TYLENOL) PO PRN (04:06)
--- NOTE | 2017-07-18 08:13 | CONSULTATION REPORT ---
DATE OF SERVICE: 07/17/2017 ATTENDING PHYSICIAN: Dr. Garcia. SUMMARY: After reviewing the patient's record, interviewing him, and examining him, this is a 66-year-old white man who went to the [place] for his regular checkup and was found apparently to have a 2 liters bladder distention. A catheter was inserted after which he started having some hematuria and started drinking a lot of water to clear that; however, he continued to have significant hematuria and some clots. He presented to the emergency room. Catheter was draining well with no problem. The patient is on aspirin and Plavix. He was started by the [facility] on finasteride and tamsulosin and Bactrim-DS. He did have symptoms of prostatitis in the past in the form of weak stream, incomplete emptying, frequency, nocturia. Denies any urinary tract infections. The patient smokes, but no alcohol, no drugs. The patient is single and has no children. There are some seasonal allergies. Surgery baum had an umbilical hernia repair. The patient had stents, 4 or 5, done in [facility] 03/2016 for which he takes the aspirin and the Plavix. FAMILY HISTORY: COPD and cardiovascular disease. PHYSICAL EXAMINATION: VITALS: Per chart. GENERAL: Well-nourished, well-developed, in no acute distress. HEAD: Normocephalic. ENT: Unremarkable. NECK: Supple. CHEST: Clear. HEART: Regular rate and rhythm. No murmur. ABDOMEN: Soft, benign. LUNGS: Clear, nontender. No CVA tenderness. EXTREMITIES: No edema or cyanosis. NEUROLOGICAL: Grossly intact. Oriented x3. SKIN: Warm and dry. Review of his lab reveals an H and H of 10.9 and 31, a positive urine of course, and significant hyponatremia with a sodium of 117, potassium 4.5, creatinine is normal, GFR normal. IMPRESSION: Gross hematuria. PLAN: 1. Continue present management. The patient had gross hematuria and because of the decompression of the bladder with the catheter and also postobstructive diuresis compounded with drinking plenty of water, which contributed to his dilutional hyponatremia, which is being corrected properly by Dr. Garcia. Would recommend not to change his output, replace only half of it. We are going to go ahead and get a noncontrast CT scan of the abdomen and pelvis. Later on once he clears up, we will do a cystoscopy and full workup for his BPH and prostatitis. This was fully explained to him and his sister. Job ID: [id number] DocumentID: [id number] Dictated Date: 07/17/2017 13:02:54 [place]set Stitcher Date: 07/17/2017 13:29:54 Dictated By: CARLITOS MORFIN MD
[2017-07-18 08:22] VITALS: BP 115/67
[2017-07-18] MEDS: cefTRIAXone 1 GM/NS 50 ML IVPB IV SCH ×2 (08:37)
--- NOTE | 2017-07-18 09:37 | Progress Note-Urology ---
Progress Note-Urology Progress Notes/Assess & Plan Progress/Assessment & Plan DOING AND FEELING WELL. URINE CLEARING SLOWLY. CT REVIEWED Final Diagnosis GROSS HEMATURIA CARLITOS MORFIN MD Jul 18, 2017 9:37 am
[2017-07-18 11:04] LABS: BASOPHILS % (AUTO) 1 % (0-10); EOSINOPHILS # (AUTO) 0.2 10^3/uL (0.0-0.3); EOSINOPHILS % (AUTO) 4 % (0-10); LYMPHOCYTES # (AUTO) 1.1 X 10^3 (1.0-4.0); LYMPHOCYTES % (AUTO) 31 % (12-44); MEAN CORPUSCULAR HEMOGLOBIN 34 PG (25-34); MEAN CORPUSCULAR HGB CONC 35 G/DL (32-36); MEAN CORPUSCULAR VOLUME 96 FL (80-99); MEAN PLATELET VOLUME 10.6 FL (7.4-10.4); MONOCYTES # (AUTO) 0.5 X 10^3 (0.0-1.0); MONOCYTES % (AUTO) 13 % (0-12); NEUTROPHILS # (AUTO) 1.8 X 10^3 (1.8-7.8); NEUTROPHILS % (AUTO) 52 % (42-75); PLATELET COUNT 120 10^3/uL (130-400); RED BLOOD COUNT 2.98 10^6/uL (4.35-5.85); RED CELL DISTRIBUTION WIDTH 12.7 % (10.0-14.5); WHITE BLOOD COUNT 3.6 10^3/uL (4.3-11.0)
--- NOTE | 2017-07-18 11:13 | Progress Note-Hospitalist ---
Progress Note HPI/CC on Admission CC: Hyponatremia of 117 with gross hematuria HPI: This is a 66yoWM pt of [place] clinic recently seen and Lamas cath was placed by [place] due to chronic urinary retention then began having large output of blood. Pt had Na+ level of 117 and a fever so Dr. Downey recommended admission to be placed on gentle fluid restriction of 750 cc. Na+ now 124. Patient Interview: Pt states that he does not feel too bad Pt states cath was placed on Friday. Pt states his urine was pink then, but became dark when he returned home Pt confirms being on a "heart diet" for a year and has lost 30 lbs. It includes no meat, dairy, or oil and salt is limited Pt denies being on a diuretic. Pt takes only a few home meds like BP meds, but was told only to take them if BP over 140/90 Pt confirms smoking pack a day Physical exam stable Abx discussed and Na+ improved Pt denies needing pain meds Pt states he was drinking a lot of water to flush the blood out of his urine Scribed by Tamara Li under the direct supervision of Dr. Srivastava. Progress Notes/Assess & Plan Date Seen 07/18/17 Time Seen by Provider: 10:30 Admission Dx/Process Assessment: Severe hyponatremia with gross hematuria after Lamas placement at the [facility] Friday History of hypertension no longer on meds Recent weight loss purposeful of 30 pounds since going on cardiac diet with low sodium Recent polydipsia with water due to redness in his urine to try to flush out BPH Smoker but chest x-ray negative for mass such as small cell causing hyponatremia Empiric antibiotic in case urine culture final report reveals infection Diagonsis/Assessment & Plan Pharmacy Review: Abx not needed, cultures are negative learning and development assistant: Dr. Downey has seen pt this am. Urine is still dark red and Dr. 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 Labs have not yet been checked Pt is easy going Patient Interview: Physical exam stable. Pt confirms needing to have a BM Bloodwork to be checked after interview Pt states that he would very much like to get on the treadmill again. Pt states his legs are cramping at night. AFVSS, Pleasant, improved RRR, CTAB No edema Assessment: Severe hyponatremia with gross hematuria after Lamas placement at the [facility] Friday Dr Downey is appreciated History of hypertension no longer on meds Recent weight loss purposeful of 30 pounds since going on cardiac diet with low sodium Recent polydipsia with water due to redness in his urine to try to flush out BPH Smoker but chest x-ray negative for mass such as small cell causing hyponatremia Empiric antibiotic in case urine culture final report reveals infection now DC since Cx negative Plan: Continue fluid restriction but await lab results Appreciate Dr Downey's assistance Hold Plavix Recheck labs in am Scribed by Tamara Li under the direct supervision of Dr. Srivastava. RODRICK SRIVASTAVA DO Jul 18, 2017 11:13
[2017-07-18 11:27] LABS: CARBON DIOXIDE 24 MMOL/L (21-32); CHLORIDE 101 MMOL/L (98-107); POTASSIUM 4.1 MMOL/L (3.6-5.0); SODIUM 132 MMOL/L (135-145)
[2017-07-18 11:28] LABS: ALANINE AMINOTRANSFERASE 20 U/L (0-55); ALBUMIN 3.6 GM/DL (3.2-4.5); ANION GAP 7 MMOL/L (5-14); ASPARTATE AMINO TRANSFERASE 33 U/L (5-34); BILIRUBIN,TOTAL 0.1 MG/DL (0.1-1.0); BLOOD UREA NITROGEN 8 MG/DL (7-18); BUN/CREATININE RATIO 11; CALCIUM 8.4 MG/DL (8.5-10.1); CREATININE SERUM 0.76 MG/DL (0.60-1.30); GFR ESTIMATED > 60; GLUCOSE 77 MG/DL (70-105); TOTAL PROTEIN 5.8 GM/DL (6.4-8.2)
[2017-07-18 12:00] VITALS: BP 150/79
[2017-07-18 16:00] VITALS: BP 143/71
[2017-07-18 20:00] VITALS: BP 103/58
[2017-07-19] VITALS: BP 112/62
[2017-07-19] MEDS: RT-ALBUTEROL SULF 2.5 MG/3 ML PRE-MIX VIAL IH SCH ×6 (01:51→21:37)
[2017-07-19 04:00] VITALS: BP 123/56
[2017-07-19 06:14] LABS: BASOPHILS % (AUTO) 1 % (0-10); EOSINOPHILS # (AUTO) 0.2 10^3/uL (0.0-0.3); EOSINOPHILS % (AUTO) 6 % (0-10); LYMPHOCYTES # (AUTO) 1.8 X 10^3 (1.0-4.0); LYMPHOCYTES % (AUTO) 50 % (12-44); MEAN CORPUSCULAR HEMOGLOBIN 34 PG (25-34); MEAN CORPUSCULAR HGB CONC 35 G/DL (32-36); MEAN CORPUSCULAR VOLUME 96 FL (80-99); MEAN PLATELET VOLUME 11.1 FL (7.4-10.4); MONOCYTES # (AUTO) 0.3 X 10^3 (0.0-1.0); MONOCYTES % (AUTO) 8 % (0-12); NEUTROPHILS # (AUTO) 1.2 X 10^3 (1.8-7.8); NEUTROPHILS % (AUTO) 35 % (42-75); PLATELET COUNT 116 10^3/uL (130-400); RED BLOOD COUNT 2.68 10^6/uL (4.35-5.85); RED CELL DISTRIBUTION WIDTH 12.6 % (10.0-14.5); WHITE BLOOD COUNT 3.5 10^3/uL (4.3-11.0)
[2017-07-19 06:35] LABS: ALANINE AMINOTRANSFERASE 19 U/L (0-55); ALBUMIN 3.3 GM/DL (3.2-4.5); ANION GAP 10 MMOL/L (5-14); ASPARTATE AMINO TRANSFERASE 30 U/L (5-34); BILIRUBIN,TOTAL 0.2 MG/DL (0.1-1.0); BLOOD UREA NITROGEN 6 MG/DL (7-18); BUN/CREATININE RATIO 9; CALCIUM 8.4 MG/DL (8.5-10.1); CARBON DIOXIDE 19 MMOL/L (21-32); CHLORIDE 104 MMOL/L (98-107); CREATININE SERUM 0.66 MG/DL (0.60-1.30); GFR ESTIMATED > 60; GLUCOSE 87 MG/DL (70-105); POTASSIUM 4.6 MMOL/L (3.6-5.0); SODIUM 133 MMOL/L (135-145); TOTAL PROTEIN 5.3 GM/DL (6.4-8.2)
[2017-07-19 07:30] VITALS: BP 111/53
[2017-07-19] MEDS: NS IV 1000 ML 1,000 ML IV SCH ×2 (10:05→12:28)
--- NOTE | 2017-07-19 10:19 | Progress Note-Hospitalist ---
Subjective HPI/CC On Admission Date Seen by Provider: Jul 19, 2017 Time Seen by Provider: 10:13 CC: Hyponatremia of 117 with gross hematuria HPI: This is a 66yo[place] pt of [place] clinic recently seen and Lamas cath was placed by [place] due to chronic urinary retention then began having large output of blood. Pt had Na+ level of 117 and a fever so Dr. Downey recommended admission to be placed on gentle fluid restriction of 750 cc. Na+ now 124. Patient Interview: Pt states that he does not feel too bad Pt states cath was placed on Friday. Pt states his urine was pink then, but became dark when he returned home Pt confirms being on a "heart diet" for a year and has lost 30 lbs. It includes no meat, dairy, or oil and salt is limited Pt denies being on a diuretic. Pt takes only a few home meds like BP meds, but was told only to take them if BP over 140/90 Pt confirms smoking pack a day Physical exam stable Abx discussed and Na+ improved Pt denies needing pain meds Pt states he was drinking a lot of water to flush the blood out of his urine Scribed by Tamara Li under the direct supervision of Dr. Garcia. Subjective/Events-last exam patient reports that he is feeling better. His urine was clear this morning but after getting up and walking around he is back to gross hematuria without clots. He denies pelvic pressure pain chills or fever with improved energy level. He states that within urinary obstruction symptoms he had been feeling well prior to catheter placement at the [place] on Friday. His last dose of aspirin and Plavix was on Friday. He is 15 months out from coronary stent placement and is had no cardiac problems since. He had lost 30 pounds but states that he had been on the plant-based diet was [facility] days a week and feeling well attributed his weight loss to major dietary change. Objective Exam Vital Signs Vital Sign - Last 12Hours 07/16/17 07/16/17 15:09 18:37 Temp 100.0 Pulse 95 Resp 18 B/P (MAP) 144/77 Pulse Ox 98 O2 Delivery Room Air Capillary Refill : Less Than 3 SecondsLess Than 3 Seconds General Appearance: No Apparent Distress, WD/WN Respiratory: Chest Non Tender, Lungs Clear, Normal Breath Sounds, No Accessory Muscle Use, No Respiratory Distress Cardiovascular: Regular Rate, Rhythm, No Edema, No Gallop, No JVD, No Murmur, Normal Peripheral Pulses Gastrointestinal: Non Tender, Soft Neurologic/Psychiatric: Alert, Oriented x3 Results/Procedures Lab Laboratory Tests 07/18/17 10:55 07/19/17 05:26 07/19/17 05:46 Assessment/Plan Assessment and Plan Assess & Plan/Chief Complaint 1. Hyponatremia improving possibly aggravated by Bactrim. Chest x-ray and CT of the abdomen and pelvis revealed no evidence for underlying cancer. With recurrence of significant gross hematuria will DC IV fluids monitor for 1 more day with repeat sodium level in the morning. If there is no problems with catheter obstruction will DC continuing to hold aspirin and Plavix for now. 2. Mild pancytopenia discussed the patient would likely need hematology referral as an outpatient for further evaluation. He is never been told that he said problems with any was blood counts in the past. 3. History of coronary artery disease likely stable off antiplatelet therapy due to significant gross hematuria. Her other cardiac medications for this reason and underlying hypertension as well. МАРИЯ ALBERTS MD Jul 19, 2017 10:19
--- NOTE | 2017-07-19 11:17 | Progress Note-Urology ---
Progress Note-Urology Progress Notes/Assess & Plan Progress/Assessment & Plan URINE STILL DARK BUT INTAKE OF FLUID IS LOW. PLAN INCREASE INTAKE PO AND IV. IF STILL SAME TOMORROW, START CBI ALL EXPLAINED TO PATIENT. CBC STABLE Final Diagnosis GROSS HEMATURIA CARLITOS MORFIN MD Jul 19, 2017 11:17
[2017-07-19 12:00] VITALS: BP 159/77
[2017-07-19 16:15] VITALS: BP 143/64
[2017-07-19 20:05] VITALS: BP 147/66
[2017-07-20] VITALS: BP 151/80
[2017-07-20] MEDS: NS IV 1000 ML 1,000 ML IV SCH ×2 (01:23→12:25)
[2017-07-20] MEDS: RT-ALBUTEROL SULF 2.5 MG/3 ML PRE-MIX VIAL IH SCH ×6 (01:38→21:41)
[2017-07-20 05:30] LABS: ANION GAP 8 MMOL/L (5-14); BLOOD UREA NITROGEN 8 MG/DL (7-18); BUN/CREATININE RATIO 13; CARBON DIOXIDE 22 MMOL/L (21-32); CHLORIDE 105 MMOL/L (98-107); CREATININE SERUM 0.61 MG/DL (0.60-1.30); GFR ESTIMATED > 60; GLUCOSE 89 MG/DL (70-105); POTASSIUM 4.4 MMOL/L (3.6-5.0); SODIUM 135 MMOL/L (135-145)
[2017-07-20 08:24] VITALS: BP 140/65
--- NOTE | 2017-07-20 10:07 | Progress Note-Urology ---
Progress Note-Urology Progress Notes/Assess & Plan Progress/Assessment & Plan CONTINUES IMPROVING, CBC STABLE Final Diagnosis GROSS HEMATURIA CARLITOS MORFIN MD Jul 20, 2017 10:07
--- NOTE | 2017-07-20 10:45 | Progress Note-Hospitalist ---
Subjective HPI/CC On Admission Date Seen by Provider: Jul 20, 2017 Time Seen by Provider: 10:35 CC: Hyponatremia of 117 with gross hematuria HPI: This is a 66yo[place] pt of [place] [facility] recently seen and Lamas cath was placed by [place] due to chronic urinary retention then began having large output of blood. Pt had Na+ level of [address] fever so [address] Downey recommended admission to be placed on gentle fluid restriction of 750 cc. Na+ now 124. Patient Interview: Pt states that he does not feel too bad Pt states cath was placed on Friday. Pt states his urine was pink then, but became dark when he returned home Pt confirms being on a "heart diet" for a year and has lost 30 lbs. It includes no meat, dairy, or oil and salt is limited Pt denies being on a diuretic. Pt takes only a few home meds like BP meds, but was told only to take them if BP over 140/90 Pt confirms smoking pack a day Physical exam stable Abx discussed and Na+ improved Pt denies needing pain meds Pt states he was drinking a lot of water to flush the blood out of his urine Scribed by Tamara Li under the direct supervision of Dr. Garcia. Subjective/Events-last exam patient feeling well voicing no complaints. At times his urine has been clear that this morning still has significant gross hematuria without clots in the bag. He denies pelvic pain or bladder spasm type sensation. Objective Exam Vital Signs Vital Sign - Last 12Hours 07/16/17 07/16/17 15:09 18:37 Temp 100.0 Pulse 95 Resp 18 B/P (MAP) 144/77 Pulse Ox 98 O2 Delivery Room Air Capillary Refill : Less Than 3 SecondsLess Than 3 Seconds General Appearance: No Apparent Distress, WD/WN Respiratory: Chest Non Tender, Lungs Clear, Normal Breath Sounds, No Accessory Muscle Use, No Respiratory Distress Cardiovascular: Regular Rate, Rhythm, No Edema, No Gallop, No JVD, No Murmur, Normal Peripheral Pulses Gastrointestinal: Normal Bowel Sounds, No Organomegaly, No Pulsatile Mass, Non Tender, Soft Results/Procedures Lab Laboratory Tests 07/20/17 04:25 Assessment/Plan Assessment and Plan Assess & Plan/Chief Complaint 1. Hyponatremia resolved possibly aggravated by Bactrim. if continuous bladder irrigation was performed at the [place] this would be another likely etiology. Chest x-ray and CT of the abdomen and pelvis revealed no evidence for underlying cancer. With recurrence of significant gross hematuria will monitor for [address] Downey's recommendation.. under discharge planning has been done with recommendations to continue to hold aspirin and Plavix. 2. Mild pancytopenia discussed the patient would likely need hematology referral as an outpatient for further evaluation. He is never been told that he said problems with any was blood counts in the past. 3. History of coronary artery disease stable off antiplatelet therapy due to significant gross hematuria. МАРИЯ ALBERTS MD Jul 20, 2017 10:45
[2017-07-20 12:20] VITALS: BP 131/74
[2017-07-20 16:15] VITALS: BP 141/58
[2017-07-21] VITALS: BP 136/70
[2017-07-21] MEDS: NS IV 1000 ML 1,000 ML IV SCH (01:13)
[2017-07-21] MEDS: RT-ALBUTEROL SULF 2.5 MG/3 ML PRE-MIX VIAL IH SCH ×2 (02:18→07:34)
[2017-07-21 08:00] VITALS: BP 161/70
--- NOTE | 2017-07-21 08:09 | Progress Note-Urology ---
Progress Note-Urology Progress Notes/Assess & Plan Progress/Assessment & Plan doing well, urine clear yellow. discharge. Final Diagnosis gross hematuria CARLITOS MORFIN MD Jul 21, 2017 8:09 am
[2017-07-21] MEDS ORDERED: CIPR-225 PO (09:14)
--- NOTE | 2017-07-21 09:18 | Discharge Summary-Hospitalist ---
Diagnosis/Chief Complaint Date of Admission Jul 16, 2017 at 18:53 Date of Discharge Discharge Date: Jul 21, 2017 Admission Diagnosis Assessment: Severe hyponatremia with gross hematuria after Ortiz placement at the [facility] Friday History of hypertension no longer on meds Recent weight loss purposeful of 30 pounds since going on cardiac diet with low sodium Recent polydipsia with water due to redness in his urine to try to flush out BPH Smoker but chest x-ray negative for mass such as small cell causing hyponatremia Empiric antibiotic in case urine culture final report reveals infection Discharge Diagnosis Assessment: Severe hyponatremia with gross hematuria after Ortiz placement at the [facility] Friday Dr Downey is appreciated currently hematuria resolved but ortiz cath still in place History of hypertension no longer on meds Recent weight loss purposeful of 30 pounds since going on cardiac diet with low sodium Recent polydipsia with water due to redness in his urine to try to flush out BPH Smoker but chest x-ray negative for mass such as small cell causing hyponatremia Empiric antibiotic in case urine culture final report reveals infection now DC since Cx negative but needs Cipro on DC due to procedure planned outpt per Dr Downey Discharge Summary Discharge Physical Examination Allergies: Coded Allergies: Iodinated Contrast- Oral and IV Dye (Unverified Allergy, Severe, FACE SWOLLEN, EYES RED, 07/16/17) iodine (Unverified Allergy, Severe, FACE SWOLLEN, EYES RED, 07/16/17) Vitals & I&Os Vital Signs Date Time Temp Pulse Resp B/P (MAP) Pulse Ox O2 Delivery O2 Flow Rate FiO2 07/21/17 07:34 98 Room Air 07/21/17 00:00 97.8 81 16 136/70 Hospital Course Hospital course: patient had an uneventful hospital course although lengthy. He was admitted for hyponatremia at 117 caused by multiple factors including polydipsia to "flush the blood out of my urine" and other factors so he was placed on severe oral fluid restriction of 750cc with gentle IVF of NS at 70cc/ hr. Empiric abx were initiated with Rocephin and Levaquin since he had been placed on Bactrim from [place] earlier in the week when the ortiz was placed due to severe urinary retention. Overall he improved with Dr Downey's expertise and did not require CBI due to no clots had formed. Plavix was held due to profound hematuria and overall he had improved and was ready for DC with close f/u with Dr Downey and DC on Cipro 500mg BID for 7 days. Labs (last 24 hrs) Microbiology 07/16/17 Blood Culture - Preliminary, Resulted No growth Discharge Home Medications: Active Scripts Active Reported Metoprolol Tartrate 25 Mg Tablet 12.5 Mg PO BID TAKES 1/2 (25MG) TABLET Acid Importer Exporter (FAMOTIDINE) (Famotidine) 20 Mg Tablet 20 Mg PO HS Lisinopril 10 Mg Tablet 10 Mg PO DAILY Aspirin EC (Aspirin) 81 Mg Tablet.dr 81 Mg PO DAILY Bactrim Ds Tablet (Sulfamethoxazole/Trimethoprim) 1 Each Tablet 1 Tab PO BID FILLED 7 DAY SUPPLY 07-14-17 Finasteride 5 Mg Tablet 5 Mg PO DAILY Tamsulosin HCl 0.4 Mg Cap.er.24h 0.4 Mg PO 1730 Plavix (Clopidogrel Bisulfate) 75 Mg Tablet 75 Mg PO DAILY Instructions to patient/family Please see electonic discharge instructions given to patient. Clinical Quality Measures DVT/VTE Risk/Contraindication: Risk Factor Score Per Nursin RFS Level Per Nursing on Admit: 4+=Very High RODRICK SRIVASTAVA DO Jul 21, 2017 09:18
== END 2017-07-21 10:40 | disposition home or self-care (01) | DRG 920 ==
LOC: EDUNIT# 14:54 → ER 14:58 → 4TH 18:53
PROVIDERS: ADMIT Internal Medicine; ATTEND Internal Medicine
DX: N99.820 Postprocedural hemorrhage of a genitourinary system organ or structure following a genitourinary system procedure (principal); R31.0 Gross hematuria; E87.1 Hypo-osmolality and hyponatremia; D61.818 Other pancytopenia; I10 Essential (primary) hypertension; N40.1 Benign prostatic hyperplasia with lower urinary tract symptoms; N41.9 Inflammatory disease of prostate, unspecified; R39.11 Hesitancy of micturition; R39.12 Poor urinary stream; R39.14 Feeling of incomplete bladder emptying; R35.0 Frequency of micturition; R35.1 Nocturia; J44.9 Chronic obstructive pulmonary disease, unspecified; F17.210 Nicotine dependence, cigarettes, uncomplicated; J30.2 Other seasonal allergic rhinitis; K22.70 Barrett's esophagus without dysplasia; Z86.79 Personal history of other diseases of the circulatory system; Z79.02 Long term (current) use of antithrombotics/antiplatelets; Z79.82 Long term (current) use of aspirin; Z95.5 Presence of coronary angioplasty implant and graft
CPT/HCPCS: 36415; 71010; 71020; 74176; 80048; 80053; 81000; 83605; 85007; 85025; 85027; 85610; 85730; 87040; 93005; 94640; 94664; 94760; 96361; 96374

== ENCOUNTER 2017-07-25 03:39 | Emergency (ER) | payer MEDICARE, MEDICAID ==
[~2017-07-25] VITALS: Ht 167.6 cm; Wt 62.1 kg
[~2017-07-25 03:39] MED LIST changes: +ASPI-983 PO; +CIPR-225 PO; +CLOP75TA69 PO; +FAMO20TA3 PO; +FINA5TAB6 PO; +LISI10TA2 PO; +METO-333 PO; +SULF1TAB35 PO; +TAMS0.4C2 PO
[2017-07-25] MEDS ORDERED: NS IV 1000 ML 1,000 ML IV ONE (03:41)
[2017-07-25] MEDS ORDERED: BETH25TA (03:47)
[2017-07-25 04:06] LABS: BASOPHILS % (AUTO) 0 % (0-10); EOSINOPHILS # (AUTO) 0.1 10^3/uL (0.0-0.3); EOSINOPHILS % (AUTO) 1 % (0-10); LYMPHOCYTES # (AUTO) 0.9 X 10^3 (1.0-4.0); LYMPHOCYTES % (AUTO) 9 % (12-44); MEAN CORPUSCULAR HEMOGLOBIN 34 PG (25-34); MEAN CORPUSCULAR HGB CONC 35 G/DL (32-36); MEAN CORPUSCULAR VOLUME 96 FL (80-99); MEAN PLATELET VOLUME 10.7 FL (7.4-10.4); MONOCYTES % (AUTO) 9 % (0-12); NEUTROPHILS # (AUTO) 8.5 X 10^3 (1.8-7.8); NEUTROPHILS % (AUTO) 81 % (42-75); PLATELET COUNT 151 10^3/uL (130-400); RED BLOOD COUNT 3.01 10^6/uL (4.35-5.85); RED CELL DISTRIBUTION WIDTH 12.7 % (10.0-14.5); WHITE BLOOD COUNT 10.4 10^3/uL (4.3-11.0)
[2017-07-25 04:14] LABS: INR 0.9 (0.8-1.4); PROTHROMBIN TIME PATIENT 12.4 SEC (12.2-14.7)
[2017-07-25 04:33] LABS: ALANINE AMINOTRANSFERASE 24 U/L (0-55); ALBUMIN 3.9 GM/DL (3.2-4.5); ANION GAP 11 MMOL/L (5-14); ASPARTATE AMINO TRANSFERASE 33 U/L (5-34); BILIRUBIN,TOTAL 0.3 MG/DL (0.1-1.0); BLOOD UREA NITROGEN 8 MG/DL (7-18); BUN/CREATININE RATIO 10; CALCIUM 8.8 MG/DL (8.5-10.1); CARBON DIOXIDE 19 MMOL/L (21-32); CHLORIDE 96 MMOL/L (98-107); CREATININE SERUM 0.77 MG/DL (0.60-1.30); GFR ESTIMATED > 60; GLUCOSE 108 MG/DL (70-105); POTASSIUM 4.6 MMOL/L (3.6-5.0); SODIUM 126 MMOL/L (135-145); TOTAL PROTEIN 6.8 GM/DL (6.4-8.2)
[2017-07-25 04:40] LABS: TROPONIN I < 0.30 NG/ML (<0.30)
[2017-07-25 04:41] LABS: BILIRUBIN,URINE NEGATIVE (NEGATIVE); KETONES,URINE NEGATIVE (NEGATIVE); LEUKOCYTE ESTERASE ,URINE 1+ (NEGATIVE); NITRITE,URINE NEGATIVE (NEGATIVE); PH,URINE 6.5 (5-9); PROTEIN,URINE 2+ (NEGATIVE); UROBILINOGEN,URINE NORMAL (NORMAL)
[2017-07-25 04:54] LABS: SQUAMOUS EPITHELIAL CELL,UR RARE /HPF; WBC,URINE 0-2 /HPF
--- NOTE | 2017-07-25 05:33 | ED General ---
General Chief Complaint: Trauma-Non Activation Stated Complaint: DIZZY Nursing Triage Note: patient reports falling off the toilet after passing out about 0100. patient reports taking double his dose of flomax tonight Nursing Sepsis Screen: No Definite Risk Source of Information: Patient, EMS, Old Records History of Present Illness Time Seen by Provider: 03:37 Initial Comments [facility]--PT LIVES ALONE WENT TO BED AROUND 2200, THEN GOT UP AT 0100 TO URINATE, BECAME DIZZY AND WHILE SITTING ON TOILET HE PASSED OUT AND WOKE UP WITH HIS HEAD ON THE FLOOR BUT STILL PARTIALLY SITTING ON THE TOILET AND "SWEAT WAS POURING OFF ME" PT GOT HIMSELF UP, GOT DRESSED AND WALKED TO THE COUCH, EVEN THOUGH HE WAS STILL DIZZY NO CHEST PAIN NO SHORTNESS OF BREATH NO PALPITATIONS NO HEADACHE NO VISION CHANGES NO NAUSEA/VOMITING NO PARESTHESIAS OR MOTOR DEFICITS. NO PAIN ANYWHERE. PT WAS JUST ADMITTED TO THE HOSPITAL 07/16-07/21/17 --DX UTI WITH SEPSIS AFTER HAVING A CHAVARRIA PLACED ON 07/14/17 AT [facility] IN [facility] FOR URINARY RETENTION PT WAS VERY HYPONATREMIC ON ADMIT WITH SODIUM OF 117--PT HAD BEEN DRINKING LARGE AMOUNTS OF WATER "TO FLUSH HIS URINE" PRIOR TO ADMIT. PT WAS ADVISED ON FLUID RESTRICTION BUT STATES HE HAS BEEN DRINKING ALOT OF WATER, COFFEE AND TEA SINCE HE GOT HOME "TO FLUSH HIS URINE" SINCE HE WAS DISMISSED. PT WAS SEEN BY DR. MORFIN YESTERDAY AND HAD CHAVARRIA CATHETER REMOVED. ALSO HAD FLOMAX DOSE DOUBLED AND TOOK FIRST DOUBLE DOSE THIS EVENING BEFORE HE WENT TO BED -- STATES ON BOTTLE "MAY CAUSE DIZZINESS" STATES HE VOIDED A SMALL AMOUNT BEFORE HE PASSED OUT, AND STILL HAS AN URGE TO URINATE. NO PAIN ON URINATION NO ABDOMINAL PAIN NO BACK PAIN NO FEVER PCP: [facility] DAY WORKER: DR. CHOUDHARY UROLOGY: DR. MORFIN Allergies and Home Medications Allergies Coded Allergies: Iodinated Contrast- Oral and IV Dye (Unverified Allergy, Severe, FACE SWOLLEN, EYES RED, 07/16/17) iodine (Unverified Allergy, Severe, FACE SWOLLEN, EYES RED, 07/16/17) Home Medications Bethanechol Chloride 25 Mg Tablet, (Reported) Ciprofloxacin HCl 500 Mg Tablet, 500 MG PO BID, #14 Prescribed by: RODRICK SRIVASTAVA on 07/21/17 0914 Famotidine 20 Mg Tablet, 20 MG PO HS, (Reported) Finasteride 5 Mg Tablet, 5 MG PO DAILY, (Reported) Lisinopril 10 Mg Tablet, 10 MG PO DAILY, (Reported) Metoprolol Tartrate 25 Mg Tablet, 12.5 MG PO BID, (Reported) TAKES 1/2 (25MG) TABLET Tamsulosin HCl 0.4 Mg Cap.er.24h, 0.4 MG PO 1730, (Reported) Constitutional: see HPI, diaphoresis, dizziness EENTM: no symptoms reported Respiratory: no symptoms reported Cardiovascular: see HPI, No chest pain, No edema, Hx of Intervention (5-6 STENTS), No palpitations, syncope, vascular heart diseas Gastrointestinal: no symptoms reported Genitourinary: see HPI Musculoskeletal: no symptoms reported Skin: no symptoms reported Psychiatric/Neurological: See HPI (SYNCOPE), Denies Headache, Denies Numbness, Denies Paresthesia, Denies Seizure, Denies Tingling, Denies Weakness Past [id number]-[id number] Hx Patient Social History Alcohol Use: Occasionally Uses Recreational Drug Use: No Smoking Status: Current Everyday Smoker (> 1 PPD) Type Used: Cigarettes Recent Foreign Travel: No Contact w/Someone Who Travel: No Recent Infectious Disease Expo: No Recent Hopitalizations: No Physical Abuse: No Sexual Abuse: No Immunizations Up To Date Tetanus Booster (TDap): Less than 5yrs Date of Pneumonia Vaccine: Mar 14, 2013 Seasonal Allergies Seasonal Allergies: Yes Surgeries History of Surgeries: Yes (UMBILICAL HERNIA; CARDIAC CATH WITH 5-6 STENTS) Surgeries: Abdominal, Adenoidectomy, Cardiac, Coronary Stent, Tonsillectomy Respiratory History of Respiratory Disorde: Yes Respiratory Disorders: COPD Currently Using CPAP: No Currently Using BIPAP: No Cardiovascular History of Cardiac Disorders: Yes (5-6 STENTS ) Cardiac Disorders: Coronary Artery Disease, High Cholesterol, Hypertension Neurological History of Neurological Disord: No Reproductive System Hx Reproductive Disorders: No Genitourinary History of Genitourinary Disor: Yes (GROSS HEMATURIA/UTI WITH SEPSIS- 07/16/17; URINARY RETENTION) Genitourinary Disorders: Benign Prostatic Hyperpl Gastrointestinal History of Gastrointestinal Di: Yes Gastrointestinal Disorders: Gastroesophageal Reflux, Fuentes's Esophagus Musculoskeletal History of Musculoskeletal Dis: No Endocrine History of Endocrine Disorders: No HEENT History of HEENT Disorders: No Cancer History of Cancer: No Psychosocial History of Psychiatric Problem: No Suicide Risk Score: 0 Integumentary History of Skin or Integumenta: No Blood Transfusions History of Blood Disorders: No Family Medical History Significant Family History: No Pertinent Family Hx Family Medial History: Alzheimer's disease 19 MOTHER Cardiovascular disease 19 FATHER (BYPASS) PVD 19 MOTHER Respiratory disorder 19 FATHER (COPD) Physical Exam Vital Signs Vital Sign - Last 12Hours 07/25/17 03:42 Temp 98.2 Pulse 84 Resp 14 B/P (MAP) 151/81 Pulse Ox 99 Capillary Refill : Less Than 3 Seconds General Appearance: No Apparent Distress, WD/WN, Other (REEKS OF CIGARETTES) HEENT: PERRL/EOMI, Other (NO EXTERNAL EVIDENCE OF TRAUMA TO HEAD. POOR DENTITION) Neck: Full Range of Motion, Normal Inspection, Non Tender, Supple Respiratory: Normal Breath Sounds, No Accessory Muscle Use, No Respiratory Distress Cardiovascular: Regular Rate, Rhythm, No Edema, No JVD, No Murmur, Normal Peripheral Pulses Gastrointestinal: Normal Bowel Sounds, No Pulsatile Mass, Soft, Other (MARKED BLADDER DISTENTION--JUST ABOVE UMBILICUS, WITH TENDERNESS. 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 II-XII Norm as Tested Skin: Normal Color, Warm/Dry Progress/Results/Core Measures Results/Orders Lab Results Laboratory Tests Test 07/25/17 03:55 07/25/17 04:30 Range/Units White Blood Count 10.4 4.3-11.0 10^3/uL Red Blood Count 3.01 L 4.35-5.85 10^6/uL Hemoglobin 10.2 L 13.3-17.7 G/DL Hematocrit 29 L 40-54 % Mean Corpuscular Volume 96 80-99 FL Mean Corpuscular Hemoglobin 34 25-34 PG Mean Corpuscular Hemoglobin Concent 35 32-36 G/DL Red Cell Distribution Width 12.7 10.0-14.5 % Platelet Count 151 130-400 10^3/uL Mean Platelet Volume 10.7 H 7.4-10.4 FL Neutrophils (%) (Auto) 81 H 42-75 % Lymphocytes (%) (Auto) 9 L 12-44 % Monocytes (%) (Auto) 9 0-12 % Eosinophils (%) (Auto) 1 0-10 % Basophils (%) (Auto) 0 0-10 % Neutrophils # (Auto) 8.5 H 1.8-7.8 X 10^3 Lymphocytes # (Auto) 0.9 L 1.0-4.0 X 10^3 Monocytes # (Auto) 1.0 0.0-1.0 X 10^3 Eosinophils # (Auto) 0.1 0.0-0.3 10^3/uL Basophils # (Auto) 0.0 0.0-0.1 10^3/uL Prothrombin Time 12.4 12.2-14.7 SEC INR Comment 0.9 0.8-1.4 Activated Partial Thromboplast Time 27 24-35 SEC Sodium Level 126 L 135-145 MMOL/L Potassium Level 4.6 3.6-5.0 MMOL/L Chloride Level 96 L 98-107 MMOL/L Carbon Dioxide Level 19 L 21-32 MMOL/L Anion Gap 11 5-14 MMOL/L Blood Urea Nitrogen 8 7-18 MG/DL Creatinine 0.77 0.60-1.30 MG/DL Estimat Glomerular Filtration Rate > 60 BUN/Creatinine Ratio 10 Glucose Level 108 H 70-105 MG/DL Calcium Level 8.8 8.5-10.1 MG/DL Magnesium Level 2.0 1.8-2.4 MG/DL Total Bilirubin 0.3 0.1-1.0 MG/DL Aspartate Amino Transf (AST/SGOT) 33 5-34 U/L Alanine Aminotransferase (ALT/SGPT) 24 0-55 U/L Alkaline Phosphatase 87 40-136 U/L Troponin I < 0.30 <0.30 NG/ML Total Protein 6.8 6.4-8.2 GM/DL Albumin 3.9 3.2-4.5 GM/DL Urine Color YELLOW Urine Clarity CLEAR Urine pH 6.5 5-9 Urine Specific [place] 1.005 L 1.016-1.022 Urine Protein 2+ H NEGATIVE Urine Glucose (UA) NEGATIVE NEGATIVE Urine Ketones NEGATIVE NEGATIVE Urine Nitrite NEGATIVE NEGATIVE Urine Bilirubin NEGATIVE NEGATIVE Urine Urobilinogen NORMAL NORMAL MG/DL Urine Leukocyte Esterase 1+ H NEGATIVE Urine RBC (Auto) 2+ H NEGATIVE Urine RBC RARE /HPF Urine WBC 0-2 /HPF Urine Squamous Epithelial Cells RARE /HPF Urine Crystals NONE /LPF Urine Bacteria TRACE /HPF Urine Casts NONE /LPF Urine Mucus NEGATIVE /LPF Urine Culture Indicated NO My Orders Orders - BRIAN LENZ DO Saline Lock/Iv-Start (07/25/17 03:41) Ekg Tracing (07/25/17 03:41) Monitor-Rhythm Ecg Trace Only (07/25/17 03:41) Ct Head/Cervical Spine Wo (07/25/17 03:41) Cbc With Automated Diff (07/25/17 03:41) Comprehensive Metabolic Panel (07/25/17 03:41) Magnesium (07/25/17 03:41) Protime With Inr (07/25/17 03:41) Partial Thromboplastin Time (07/25/17 03:41) Troponin I (07/25/17 03:41) Ua Culture If Indicated (07/25/17 03:41) Chest 1 View, Ap/Pa Only (07/25/17 03:41) Pelvis (07/25/17 03:41) Saline Lock/Iv-Start (07/25/17 03:41) Ns Iv 1000 Ml (Sodium Chloride 0.9%) (07/25/17 03:41) Bladder Scan (07/25/17 05:26) Medications Given in ED Current Medications Medications Dose Ordered Sig/Herb Route Start Time Stop Time Status Last Admin Dose Admin Sodium Chloride 1,000 ml @ 0 mls/hr Q0M ONCE IV 07/25/17 03:41 07/25/17 03:42 DC 07/25/17 03:57 0 MLS/HR Vital Signs/I&O Vital Sign - Last 12Hours 07/25/17 03:42 Temp 98.2 Pulse 84 Resp 14 B/P (MAP) 151/81 Pulse Ox 99 Blood Pressure Mean: 104 Progress Note : Progress Note PT STATES HE IS MUCH BETTER AND NO LONGER FEELS DIZZY, AND WANTS TO GO HOME. PT VOIDED AT LEAST 800-900 ML IN ER, BUT STILL WITH POST VOID RESIDUAL IN EXCESS OF 999 ML ( CUT OFF FOR BLADDER SCANNER IS 999 ML) PT ADAMANTLY REFUSES TO HAVE CATHETER PLACED, STATES HE IS URINATING "ENOUGH" PT ADVISED OF RISKS, INCLUDING BLADDER RUPTURE, AND HE STILL REFUSES ALSO ADVISED PT ON FLUID RESTRICTION HIS SODIUM IS LOW AGAIN. ECG Initial ECG Impression Time: 03:45 Initial ECG Rate: 80 Initial ECG Rhythm: Normal Sinus Initial ECG Comparisson: No Previous ECG Available Diagnostic Imaging Comments CXR--NO ACUTE PROCESS PELVIS--NO ACUTE PROCESS PENDING RADIOLOGIST REVIEW CT HEAD/CERVICAL SPINE--NO ACUTE PROCESS, CHRONIC CHANGES, PARTIAL OPACIFICATION OF RIGHT MASTOID AIR CELLS--PER [facility] VIA FAX AT 0505 Reviewed: Reviewed by Me Departure Impression Impression: Primary Impression: Episode of syncope Additional Impressions: DIZZINESS SECONDARY TO MEDICATION Hyponatremia RESOLVING UTI BPH (benign prostatic hyperplasia) Urinary retention Polydipsia Disposition: HOME, SELF-CARE Condition: Improved Departure-Patient Inst. Referrals: NO,LOCAL PHYSICIAN (PCP) Primary Care Physician CARLITOS MORFIN MD Patient Instructions: Adverse Drug Reactions, Adult (DC), Dizziness, Nonvertigo , (DC), Fluid Restricted Diet, Hyponatremia (DC), Syncope (Fainting) (DC), Urinary Retention (DC) Add. Discharge Instructions: FOLLOW UP WITH DR. MORFIN NEXT WEEK FOR FURTHER CARE TAKE FLOMAX 1 PILL TWICE A DAY INSTEAD OF 2 PILLS AT THE SAME TIME CONTINUE YOUR OTHER MEDICATIONS PRESCRIBED LIMIT YOUR FLUID INTAKE TO 1 LITER A DAY RETURN TO ER IF SYMPTOMS WORSEN All discharge instructions reviewed with patient and/or family. Voiced understanding. BRIAN LENZ DO Jul 25, 2017 05:33
--- NOTE | 2017-07-25 05:48 | Diagnostic Imaging Report ---
CHEST 1 VIEW, AP/PA ONLY Indication: Dizziness. Comparison: 07/16/2017 Findings: No focal airspace disease in the visualized lungs. Please note that the posterior lower lobes are poorly evaluated by portable radiography. No pleural effusion or pneumothorax. Normal cardiomediastinal silhouette. Impression: No acute cardiopulmonary process by portable radiography. Dictated by: Dictated on workstation # [id number]
--- NOTE | 2017-07-25 06:02 | Diagnostic Imaging Report ---
INDICATION: Pain after trauma. COMPARISON: None available. TECHNIQUE: AP view of the pelvis. FINDINGS AND IMPRESSION: 1. No fracture or traumatic malalignment is seen in the pelvis or proximal femurs. 2. Mild degenerative changes of the hips and SI joints. 3. Intravascular stent within the right common iliac artery. Dictated by: Dictated on workstation # [id number]
[2017-07-25 06:10] VITALS: BP 152/81
--- NOTE | 2017-07-25 06:31 | Diagnostic Imaging Report ---
PROCEDURE: CT head and CT cervical spine without contrast. TECHNIQUE: Multiple contiguous axial images were obtained through the brain and cervical spine without the use of intravenous contrast. Sagittal and coronal reformations through the cervical spine were then performed. INDICATION: Slipped and fell off of toilet home. Head and neck pain. COMPARISON: None available. FINDINGS: Head: No hyperdense mass or space-occupying mass. No hydrocephalus or midline shift. No evidence of territorial infarct. Basilar cisterns are patent. Age-appropriate generalized atrophy. Mild periventricular white matter hypoattenuation is most compatible with chronic microvascular ischemic disease. No focal scalp swelling. No skull fracture. Small effusion in the right mastoid air cells. Left mastoid air cells clear. Paranasal sinuses are clear. Cervical spine: No acute fracture or traumatic malalignment. Mild degenerative disc disease at C6-C7 with small posterior disc osteophyte complex. No high-grade spinal stenosis or foraminal narrowing in the cervical spine. Airway is patent. No cervical lymphadenopathy. Visualized thyroid is normal. Centrilobular emphysema within the lung apices. No pneumothorax. IMPRESSION: 1. No acute intracranial process. 2. No acute fracture or traumatic malalignment of the cervical spine. Dictated by: Dictated on workstation # [id number]
== END 2017-07-25 06:13 | disposition home or self-care (01) ==
LOC: EDUNIT# 03:39 → ER 03:40
DX: T44.6X5A Adverse effect of alpha-adrenoreceptor antagonists, initial encounter (principal); R42 Dizziness and giddiness; R55 Syncope and collapse; E87.1 Hypo-osmolality and hyponatremia; N40.1 Benign prostatic hyperplasia with lower urinary tract symptoms; N39.0 Urinary tract infection, site not specified; R63.1 Polydipsia; J44.9 Chronic obstructive pulmonary disease, unspecified; I25.10 Atherosclerotic heart disease of native coronary artery without angina pectoris; I10 Essential (primary) hypertension; E78.00 Pure hypercholesterolemia, unspecified; K21.9 Gastro-esophageal reflux disease without esophagitis; F17.210 Nicotine dependence, cigarettes, uncomplicated; Z82.49 Family history of ischemic heart disease and other diseases of the circulatory system; Z96.0 Presence of urogenital implants; Z87.19 Personal history of other diseases of the digestive system; Z95.5 Presence of coronary angioplasty implant and graft; Z90.89 Acquired absence of other organs
CPT/HCPCS: 36415; 70450; 71010; 72125; 72170; 80053; 81000; 83735; 84484; 85025; 85610; 85730; 93005; 93041; 96360